=== PATIENT | female | born 1955 | race Caucasian/White ===

== ENCOUNTER 2018-08-17 12:43 | Outpatient (REF) | payer OTHER, SELFPAY ==
--- NOTE | 2018-08-17 11:00 | PAPFT_PTH ---
PATIENT: Asha Starr LOC: [facility] U#:[id number] AGE/SX: 62/F ROOM: RE08/17/[address]: Valentina Lloyd MD, DC : 1955 BED: DIS: 08/17/2018 SPEC #: [id number] RECD: 08/17/18 18:23 STATUS: MAMIE REQ #: [id number] EMMANUEL: 08/17/18 11:[address]: Valentina Lloyd DEPT: [facility] Cytology RECD BY: Beti Ruiz Tissues: 1 - CX/ENDOCX FOR PAP SMEARS Procedures: PAP THIN PREP/UVM Screening HPV DNA PROBE Comments: [id number]
== END 2018-08-17 13:03 ==
LOC: LBN 12:43
PROVIDERS: PCP Family Medicine; Visit Provider Family Medicine
DX: Z12.4 Encounter for screening for malignant neoplasm of cervix (principal); Z11.51 Encounter for screening for human papillomavirus (HPV)
CPT/HCPCS: 88142; 87624

== ENCOUNTER 2018-08-25 01:19 | Outpatient (CLI) | payer OTHER, SELFPAY ==
--- NOTE | 2018-08-25 07:50 | DI.MAMMO_ITS ---
SYMPTOMS/DIAGNOSIS: SCREENING MAMMOGRAMS: Mammograms were interpreted according to the usual protocol including computer analysis with CAD system, tomosynthesis and C view imaging. The breast tissue is heterogeneously radiodense, which lowers the sensitivity of the study. There is no evidence of a mass. There are no suspicious calcifications and there has been no significant interval change when compared with prior images. SUMMARY: No evidence of malignancy, category 1. Yearly screening mammography is recommended. Breast density category C. MQSA ASSESSMENT OF FINDINGS: Negative. Category 1. Patient will receive a letter notifying them of these results. Bi-RADS category C. The breasts are heterogeneously dense, which may obscure small masses.
== END 2018-08-25 01:39 ==
PROVIDERS: PCP Family Medicine; Visit Provider Family Medicine
DX: Z12.31 Encounter for screening mammogram for malignant neoplasm of breast (principal)
CPT/HCPCS: 77063; 77067

== ENCOUNTER 2018-09-21 10:25 | Day surgery (SDC) | payer OTHER, SELFPAY ==
--- NOTE | 2018-09-21 07:07 | W.COLOREPORT ---
Date of service: 09/21/18 Time of Service: 13:22 Colonoscopy Report Date of procedure: 09/21/18 Pre-op diagnosis general: Family history of colon cancer, screening Post-op diagnosis procedure note: same Procedure: Colonoscopy Surgeon: Livier Barron Anesthesia proc note operative: MAC (Pineda Ha, JULIEN / ASA 2) Estimated blood loss (mL): 0 Pathology: none sent Complications: None Disposition: same day Indications: Mrs. Matty Starr is a 62-year-old female who was seen in the office to discuss a colonoscopy. She had a colonoscopy in 2012 which was normal. She has a strong family history of colon cancer with both her mother and a brother having colon cancer. Risks, benefits and complications were reviewed with her and she wished to proceed. No guarantees were given or implied. Prep: Miralax/Dulcolax Procedure Start Time: :22 Procedure End Time: 13:48 Retraction Time: 13 minutes Findings: Normal colon. very tortuous Procedure Description: After informed consent was obtained the patient was taken to the procedure room and placed in a left decubitous position. Monitors were applied and a time out was done. The patients name, date of , procedure, allergies to medications and metal in their body was reviewed. The patient was then sedated. Once sedated and comfortable a rectal exam was done. External exam was normal. Internal exam revealed a normal sphincter tone and no palpable masses. The scope was then introduced and retroflexed. No internal hemorrhoids were identified. The scope was then advanced to the cecum without difficulty. The TI and appendiceal orifice were identified. The prep was adequate. The scope was then slowly retracted over 13 minutes back into the rectum. The scope was removed and the patient was woken up and taken back to Same day surgery in stable condition. The patient tolerated the procedure well and there were no immediate complications. Follow up: The patient should follow up in 5 years due to her family history, unless they develop changes in bowel habits or other new gastrointestinal complaints.
--- NOTE | 2018-09-21 07:08 | PDOC.DSDIS_ITS ---
Discharge Plan Disposition Patient Disposition: HOME Condition: Good Discharge Details Reason For Visit: SCREENING/ Family history of colon cancer Attending Provider: Livier Barron Primary Care Provider: Valentina Lloyd Home Meds and New Rx's Prescriptions: Continue metoprolol succinate 25 mg tablet extended release 24 hr 25 mg PO DAILY Qty: 90 RF: 4 triamcinolone acetonide 0.1 % ointment 1 applic Topical DAILY PRN (Reason: rash) Qty: 80 RF: 2 estradiol [Yuvafem] 10 mcg tablet 10 mcg VG .COMPLEX Qty: 108 RF: 4 calcium carbonate-vitamin D3 [Caltrate with Vitamin D3] 1 EACH tablet 2 tab PO DAILY RF: 0 scopolamine base [Transderm-Scop] 1 EACH patch 3 day 1 patch Transdermal Q72H PRNQty: 5 RF: 4 glucosam-chond ml-qzeoop-xz ac 1 EACH capsule 1 ea PO DAILY RF: 0 lorazepam 0.5 MG tablet 0.5 mg PO HS PRNQty: 30 RF: 0 hydrocortisone acetate [Anusol-HC] 25 MG suppository 25 mg RC BID PRNQty: 30 RF: 1 bilberry fruit extract 80 MG capsule 80 mg PO DAILY RF: 0 naproxen sodium [Aleve] 220 MG tablet 220 mg PO DAILY PRNRF: 0 bupropion HCl [Wellbutrin SR] 150 MG tablet extended release 12 hr 1 tab PO DAILY Qty: 90 RF: 12 Discharge Instructions Instructions: Colonoscopy (DC) Additional Instructions: Findings: Normal Colon Follow up: 5 years New Medications: none Please call if you develop: fevers >101.5 Nausea or Vomiting Abdominal pain that is not transient 1. Because there will be medication in your system for the next 24 hours, you may feel a little sleepy. Your coordination will be affected. Therefore: a. Do not drive or operate dangerous equipment for 24 hours. b. Do not drink alcohol beverages for 24 hours (not even beer). c. Plan to go home and rest for the day. 2. Generally there are no restrictions on your activity after a day or so has gone by, but you may feel a bit fatigued for a few days. 3 After you arrive home you may have a light meal and return to a normal diet as you can tolerate it without feeling sick to your stomach. 4. After surgery, you may feel pain or discomfort. This should be only transient , but if it persists please contact your doctor. 5. If there are any questions regarding the findings of your procedure, please feel free to contact your doctor. 6. If you are unable to contact your doctor with a problem, contact the hospital at [phone]. 7. Continue all your regular medications unless directed otherwise. I understand the above instructions and have no questions. Signature of Patient or Responsible Adult Escort Date/Time Name of Responsible Adult Escort Signature of Nurse Date/Time Activity:: Activity as Tolerated Diet:: As Tolerated Discharge Orders Discharge Orders: Discharge Order (Routine); Ordered 09/21/18 Ordered By: Livier Barron DS: Diagnosis Discharge Diagnosis (1) S/P colonoscopy: Status: Acute (2) Family history of colon cancer in mother: Status: Acute
[2018-09-21 10:36] VITALS: BP 132/91; PULSE 74; RESP 16; TEMP 35.2; O2SAT 98
[2018-09-21] MEDS: Lactated Ringers 1,000 ML 80 ML IV ×2 (11:10→13:16)
[2018-09-21 14:16] VITALS: BP 119/75; PULSE 66; RESP 18; TEMP 36.8; O2SAT 99
== END 2018-09-21 14:28 | disposition home or self-care (01) ==
PROVIDERS: PCP Family Medicine; Visit Provider Surgery
PROC: 0DJD8ZZ Inspection of Lower Intestinal Tract, Via Natural or Artificial Opening Endoscopic (ICD-10-PCS; CPT 45378; principal; 2018-09-21 13:30)
DX: Z12.11 Encounter for screening for malignant neoplasm of colon (principal); Z80.0 Family history of malignant neoplasm of digestive organs
CPT/HCPCS: G0105

== ENCOUNTER 2019-01-21 10:58 | Observation (INO) | payer OTHER, SELFPAY ==
[2019-01-21] VITALS (49 sets, daily range): BP systolic 117–167; BP diastolic 71–101; PULSE 67–93; RESP 10–46; TEMP 36.5–36.8; O2SAT 95–99
--- NOTE | 2019-01-21 11:22 | DI.RAD_ITS ---
SYMPTOMS/DIAGNOSIS: PALPITATIONS, TACHYCARDIA, ? ACUTE DISEASE CHEST X-RAY, PA AND LATERAL: No priors. The heart size and pulmonary vasculature are within normal limits. The lungs are free of infiltrates, effusions or pneumothoraces. The lungs appear hyperinflated with flattened diaphragm, suggesting underlying COPD. Degenerative changes are seen in the spine. IMPRESSION: No acute pulmonary process.
[2019-01-21 11:45] LABS: Absolute Basophil Count 0.01 k/cumm (0.0-0.2); Absolute Eosinophil Count 0.06 k/cumm (0.0-0.7); Absolute Lymphocyte Count 1.34 k/cumm (1.2-3.4); Absolute Monocyte Count 0.38 k/cumm (0.11-0.7); Absolute Neutrophil Count 1.94 k/cumm (1.2-6.7); Basophils % 0.3; Eosinophils % 1.6; HGB 14.6 g/dL (12.0-15.5); Lymphocytes % 35.9; Mean Corpuscular Hemoglobin 29.7 pg (27.0-33.0); Mean Corpuscular Volume 87.6 fL (80-95); Monocytes % 10.2; Platelet Count 236 x1000/uL (130-400); RBC 4.91 m/cumm (4.00-5.20); RBC Distribution Width 12.9 % (11.7-14.6); White Blood Cell Count 3.73 k/cumm (4.4-10.8)
[2019-01-21 12:00] LABS: ALT 36 U/L (12-78); AST 31 U/L (15-37); Alkaline Phosphatase 150 U/L (46-116); Anion Gap 11.4 mmol/L (3-11); BUN 17 mg/dL (7-18); Bilirubin, Total 0.7 mg/dL (0.2-1.0); CO2 27.6 mmol/L (21.0-32.0); CREATININE 0.96 mg/dL (0.55-1.02); Calcium 9.5 mg/dL (8.5-10.1); Chloride 103 mmol/L (98-107); Estimated GFR 58.89 (mL/min/1.73m2); Glucose 125 mg/dL (70-100); Magnesium 1.9 mg/dL (1.8-2.4); Potassium 3.6 mmol/L (3.5-5.1); Sodium 142 mmol/L (136-145); Troponin I < 0.02 ng/mL (0.00-0.06)
--- NOTE | 2019-01-21 12:09 | W.ED.GENAD ---
Discharge Plan Disposition Patient Disposition: [facility] INPATIENT Condition: Stable Discharge Details Chief Complaint: Palpitatns Clinical Impression: Chest pain, rule out acute myocardial infarction Primary Care Provider: Valentina Lloyd ED Provider: Janine Aquino Home Meds and New Rx's Prescriptions: No Action triamcinolone acetonide 0.1 % ointment 1 applic Topical DAILY PRN (Reason: rash) Qty: 80 RF: 2 estradiol [Yuvafem] 10 mcg tablet 10 mcg VG .COMPLEX Qty: 108 RF: 4 calcium carbonate-vitamin D3 [Caltrate with Vitamin D3] 1 EACH tablet 2 tab PO DAILY RF: 0 scopolamine base [Transderm-Scop] 1 EACH patch 3 day 1 patch Transdermal Q72H PRNQty: 5 RF: 4 glucosam-chond tl-grxzcz-eh ac 1 EACH capsule 1 ea PO DAILY RF: 0 lorazepam 0.5 MG tablet 0.5 mg PO HS PRNQty: 30 RF: 0 hydrocortisone acetate [Anusol-HC] 25 MG suppository 25 mg RC BID PRNQty: 30 RF: 1 bilberry fruit extract 80 MG capsule 80 mg PO DAILY RF: 0 metoprolol succinate 25 mg tablet extended release 24 hr 25 mg PO DAILY Qty: 90 RF: 4 bupropion HCl [Wellbutrin SR] 150 mg tablet sustained-release 12 hr 150 mg PO DIRECTED RF: 0 Medical Decision Making 63-year-old female with a history of GERD, hypertension, anxiety and depression who presents for tachycardia, palpitations and fatigue for the past few weeks, and worsening fatigue associated with lightheadedness and left-sided chest aching and fullness today. Last episode of chest pain in route to the ED. Denies any chest pain at present. Records note that patient had a monitor and storage bin tender 1 year ago which noted a baseline sinus rhythm with 5 episodes of SVT. Considering patient's age, history of hypertension, and concerning story, cardiac workup ordered on arrival. Her EKG notes a rate of 84, sinus and no acute ST findings. Labs and imaging reviewed and unremarkable. White blood cell count 3.73. Normal electrolytes, negative troponin. Chest x-ray negative. Heart score 4 based on patient's age, history of hypertension, and suspicious story for a cardiac etiology including fatigue, lightheadedness with left-sided chest aching and fullness in a female starting 2 hours ago, will admit for observation and serial troponins. 1330 -- d/w hospitalist - accepts pt for admission. Medical Records Medical records reviewed: Yes I reviewed the patient's medical records. Imaging Data Radiologic Study: Radiologist's impression: CHEST X-RAY, PA AND LATERAL: No priors. The heart size and pulmonary vasculature are within normal limits. The lungs are free of infiltrates, effusions or pneumothoraces. The lungs appear hyperinflated with flattened diaphragm, suggesting underlying COPD. Degenerative changes are seen in the spine. IMPRESSION: No acute pulmonary process. Lab Data Lab results reviewed: Yes I reviewed the patient's lab results. Laboratory Tests Range/Units 01/21/19 01/21/19 11:10 11:10 WBC (4.4-10.8) k/cumm 3.73 L RBC (4.00-5.20) m/cumm 4.91 Hgb (12.0-15.5) g/dL 14.6 Hct (36.0-46.0) % 43.0 MCV (80-95) fL 87.6 MCH (27.0-33.0) pg 29.7 MCHC (32.0-36.0) g/dL 34.0 RDW (11.7-14.6) % 12.9 Plt Count (130-400) x1000/uL 236 MPV (8.0-11.0) fL 9.0 Immature Gran % 0.0 Neutrophils % 52.0 Lymphocytes % 35.9 Monocytes % 10.2 Eosinophils % 1.6 Basophils % 0.3 Absolute Neutrophils (1.2-6.7) k/cumm 1.94 Absolute Lymphocytes (1.2-3.4) k/cumm 1.34 Absolute Monocytes (0.11-0.7) k/cumm 0.38 Absolute Eosinophils (0.0-0.7) k/cumm 0.06 Absolute Basophils (0.0-0.2) k/cumm 0.01 Sodium (136-145) mmol/L 142 Potassium (3.5-5.1) mmol/L 3.6 Chloride (98-107) mmol/L 103 Carbon Dioxide (21.0-32.0) mmol/L 27.6 Anion Gap (3-11) mmol/L 11.4 H BUN (7-18) mg/dL 17 Creatinine (0.55-1.02) mg/dL 0.96 Estimated GFR/1.73 m2 (mL/min/1.73m2) 58.89 Glucose (70-100) mg/dL 125 H Calcium (8.5-10.1) mg/dL 9.5 Magnesium (1.8-2.4) mg/dL 1.9 Total Bilirubin (0.2-1.0) mg/dL 0.7 AST (15-37) U/L 31 ALT (12-78) U/L 36 Alkaline Phosphatase (46-116) U/L 150 H Troponin I (0.00-0.06) ng/mL < 0.02 Total Protein (6.4-8.2) g/dL 8.0 Albumin (3.4-5.0) g/dL 4.0 ECG Data Attestation: I personally reviewed and interpreted this ECG (s) as follows: Interpretation: Rate of 80, sinus, no acute ST elevation or depression. QTc 423. QRS 90. HPI General Mode of arrival: ambulatory. Date/Time Provider Initiated Documentation: 01/21/19 11:02. Limitations to Documentation: no limitations. Information obtained by: patient. HPI Narrative: Patient is a 63-year-old female with a history of hypertension, anxiety and depression who presents with tachycardia, palpitations and fatigue for the past 2 weeks, worse today with an episode of increasing fatigue and chest pain. She states today she was resting at home when she felt left-sided chest aching. She states the pain lasted for a brief second and then recurred approximately another 6 times. She admits to another episode on the way to the ER. She denies any chest pain at present. She described it as an ache and a fullness. She states today she felt more tired than usual requiring her to rest and sit at times. She also admitted to feeling some lightheadedness at the time of her chest aching. She states she has been having intermittent palpitations and tachycardia 4-5 times weekly for the past few weeks. She states she previously had a cardiac ureter year ago states which she states was negative. She states she had been taking metoprolol for her blood pressure but had a few episodes of low blood pressure with systolic in the 90s recently so she stopped her metoprolol after speaking with her primary care doctor last week. Related Data Home Medications Medication Instructions Recorded Confirmed calcium carbonate-vitamin D3 2 tab PO DAILY 02/23/13 01/21/19 [Caltrate with Vitamin D3] scopolamine base [Transderm-Scop] 1 patch TRANSDERMAL Q72H PRN #5 12/02/13 01/21/19 patch glucosam-chond mp-[id number]-vv ac 1 ea PO DAILY 05/17/14 01/21/19 lorazepam 0.5 mg PO HS PRN #30 tab 01/27/15 01/21/19 hydrocortisone acetate [Anusol-HC] 25 mg RC BID PRN #30 supp 06/12/15 01/21/19 bilberry fruit extract 80 mg PO DAILY 04/22/16 01/21/19 estradiol 10 mcg vaginal tablet 10 mcg VG .COMPLEX #108 tab 08/17/18 01/21/19 triamcinolone acetonide 0.1 % 1 applic TOPICAL DAILY PRN #80 gm 08/17/18 01/21/19 topical ointment metoprolol succinate ER 25 mg 25 mg PO DAILY #90 tab 01/19/19 01/21/19 tablet,extended release 24 hr bupropion HCl [Wellbutrin SR] 150 mg PO DIRECTED 01/21/19 01/21/19 Previous Rx's Medication Instructions Recorded estradiol 10 mcg vaginal tablet 10 mcg VG .COMPLEX #108 tab 08/17/18 triamcinolone acetonide 0.1 % 1 applic TOPICAL DAILY PRN #80 gm 08/17/18 topical ointment metoprolol succinate ER 25 mg 25 mg PO DAILY #90 tab 01/19/19 tablet,extended release 24 hr Allergies Allergy/AdvReac Type Severity Reaction Status Date / Time alendronate sodium Allergy Unknown Verified 01/21/19 11:16 latex Allergy Unknown Verified 01/21/19 11:16 risedronate sodium Allergy Unknown Verified 01/21/19 11:16 Sulfa (Sulfonamide Allergy Unknown Verified 01/21/19 11:16 Antibiotics) General Stated Complaint: Palpitatns AUNG: 2 Review of Systems Review of Systems All systems reviewed & are unremarkable except as noted in HPI and below Constitutional Reports as per HPI, Denies chills and Denies fever(s) Eyes Denies blurry vision ENT Denies dizziness, Denies sore throat and Denies throat swelling Cardiovascular Reports chest pain and Denies dyspnea Respiratory Denies cough and Denies dyspnea Gastrointestinal Denies abdominal pain, Denies diarrhea and Denies vomiting Genitourinary Denies hematuria and Denies dysuria Musculoskeletal Denies back pain and Denies numbness Integumentary/Breasts Denies lesions and Denies rash Neurologic Denies dizziness, Denies focal weakness and Denies numbness Allergic/Immunologic Denies throat swelling [facility] Medical History 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) Osteoporosis (Chronic) Gastroesophageal reflux disease (Chronic) Diverticular disease (Chronic 08/19/13) Depressive disorder (Chronic) Chronic pain of toe (Chronic 04/30/18) Cataract (Chronic 04/22/16) Atrophic vaginitis (Chronic) Annual physical exam (Resolved 06/12/15) Bacterial vaginitis (Resolved) Carpal tunnel syndrome (Resolved) Cerumen impaction (Resolved) Chronic left shoulder pain (Resolved) Diarrhea (Resolved) Elevated BP without diagnosis of hypertension (Resolved) Elevated blood pressure reading (Resolved 09/15/17) Female infertility (Resolved) Finger pain, left (Resolved) Hand numbness (Resolved 04/30/18) Shoulder pain (Resolved 10/09/00) Tachycardia (Resolved 10/27/17) Surgical History S/P colonoscopy (Acute ~09/21/18) Colonoscopy planned (Acute ~09/21/18) History of Mohs surgery for squamous cell carcinoma in situ of skin (Resolved) S/P carpal tunnel release (Resolved) S/P laparotomy (Resolved) Extraction of cataract Open Carpal Tunnel release PROCEDURES Family History Mother CAD (coronary artery disease) Essential hypertension COPD (chronic obstructive pulmonary disease) Heart disease Hyperlipidemia Neoplasm Smoker Stroke Father Diabetes Essential hypertension Heart disease Neoplasm Stroke Sister Neoplasm Smoker Sister Neoplasm Sister Smoker Sister Neoplasm Brother Diabetes Neoplasm Brother COPD (chronic obstructive pulmonary disease) Smoker Brother Smoker Brother Essential hypertension Neoplasm Grandfather Lung disease Grandfather Essential hypertension Heart disease Grandmother No problems noted. Grandmother Essential hypertension Heart disease Stroke Son No problems noted. Son No problems noted. Social History Smoking/Tobacco Use Status: Never Alcohol Intake: current Alcohol Intake frequency: a few times a month Alcohol type: wine Drug use: Never Substance use type: does not use Household members: spouse Pets and animals: Yes Pets and animals: dog(s) Duration: 15-30 minutes/day Frequency: 1-2 times per week Milka/[employer]: [employer] Special milka needs: No Do you feel safe at home: Yes Do you feel safe in your relationship?: Yes Exam Const General: cooperative, healthy appearing and no acute distress HENMT Head: normal to inspection Face and sinus: normal facial exam Eyes General: appearance normal, both eyes and all related structures EOM: EOM intact bilaterally Neck Neck: normal visual inspection and No submandibular swelling Lymphatic: no lymphadenopathy noted Chest Chest: normal inspection of the chest, normal palpation of entire chest wall and no tenderness Resp Effort & Inspection: normal respiratory effort and able to speak in complete sentences Auscultation: clear to auscultation bilaterally Cardio Rate: regular rate Rhythm: regular rhythm GI Inspection: normal to inspection Palpation: soft, not firm, not rigid and nontender Auscultation: normal bowel sounds Skin General skin exam: no rashes or lesions noted Neuro General: alert, awake and oriented x3 Cognition: normal cognition Speech: speech normal Motor: muscle tone normal throughout Sensory Exam: no sensory deficits noted Extrem General: normal to inspection, full ROM and no edema Psych Appearance: grossly normal Mental Status: mental status grossly normal Speech and Movement: speech and movement normal Affect: normal affect Course Vital Signs Temperature 97.9 F 01/21/19 11:08 Pulse 90 01/21/19 11:08 Respiratory Rate 16 01/21/19 11:08 Blood Pressure 162/93 H 01/21/19 11:08 Pulse Oximetry 98 01/21/19 11:08 Temperature 97.9 F 01/21/19 11:08 Temperature Source Skin 01/21/19 11:08 Pulse 75 01/21/19 11:58 Pulse 83 01/21/19 11:31 Respiratory Rate 46 H 01/21/19 11:58 Blood Pressure 138/94 H 01/21/19 11:58 Blood Pressure Mean 100 01/21/19 11:58 Blood Pressure Position Supine 01/21/19 11:08 Pulse Oximetry 97 01/21/19 11:58 Oxygen Delivery Method Room Air 01/21/19 11:08 Oxygen Flow Rate 0 01/21/19 11:08 Lab/Test Results Lab/Test Results: Laboratory Tests Range/Units 01/21/19 01/21/19 11:10 11:10 WBC (4.4-10.8) k/cumm 3.73 L RBC (4.00-5.20) m/cumm 4.91 Hgb (12.0-15.5) g/dL 14.6 Hct (36.0-46.0) % 43.0 MCV (80-95) fL 87.6 MCH (27.0-33.0) pg 29.7 MCHC (32.0-36.0) g/dL 34.0 RDW (11.7-14.6) % 12.9 Plt Count (130-400) x1000/uL 236 MPV (8.0-11.0) fL 9.0 Immature Gran % 0.0 Neutrophils % 52.0 Lymphocytes % 35.9 Monocytes % 10.2 Eosinophils % 1.6 Basophils % 0.3 Absolute Neutrophils (1.2-6.7) k/cumm 1.94 Absolute Lymphocytes (1.2-3.4) k/cumm 1.34 Absolute Monocytes (0.11-0.7) k/cumm 0.38 Absolute Eosinophils (0.0-0.7) k/cumm 0.06 Absolute Basophils (0.0-0.2) k/cumm 0.01 Sodium (136-145) mmol/L 142 Potassium (3.5-5.1) mmol/L 3.6 Chloride (98-107) mmol/L 103 Carbon Dioxide (21.0-32.0) mmol/L 27.6 Anion Gap (3-11) mmol/L 11.4 H BUN (7-18) mg/dL 17 Creatinine (0.55-1.02) mg/dL 0.96 Estimated GFR/1.73 m2 (mL/min/1.73m2) 58.89 Glucose (70-100) mg/dL 125 H Calcium (8.5-10.1) mg/dL 9.5 Magnesium (1.8-2.4) mg/dL 1.9 Total Bilirubin (0.2-1.0) mg/dL 0.7 AST (15-37) U/L 31 ALT (12-78) U/L 36 Alkaline Phosphatase (46-116) U/L 150 H Troponin I (0.00-0.06) ng/mL < 0.02 Total Protein (6.4-8.2) g/dL 8.0 Albumin (3.4-5.0) g/dL 4.0
[2019-01-21] MEDS: Aspirin 325 MG TAB PO (13:36)
[2019-01-21] MEDS: Normal Saline Flush 10 ML SYR IVP (13:37)
--- NOTE | 2019-01-21 14:32 | PDOC.ERCMPRO ---
Care Management Progress Note 01/21-Asha presented to the emergency department for palpitations. Dr. Aquino is admitting observation to med/surg. This CM met with Asha. Asha is lying in bed listening to music from the music therapy program. Asha lives with her [facility] in [place]. She is retired. Asha is independent at home and uses no DME. [employer] will transport home when ready. Dr. Lloyd is PCP. Asha has [employer] for insurance. Asha has this CM's contact information if further assistance is needed.
[2019-01-21 16:22] LABS: Troponin I < 0.02 ng/mL (0.00-0.06)
--- NOTE | 2019-01-21 18:09 | W.PM.HP.N ---
Date of service: 01/21/19 Time of Service: 18:09 Assessment and Plan (1) Chest pain, rule out acute myocardial infarction: Current visit: Yes Status: Acute Admit to observation for serial troponins. Will monitor on telemetry. Overall low risk for acute coronary syndrome. Plan will be for nuclear stress testing as an outpatient if she rules out. (2) Depressive disorder: Current visit: No Status: Chronic Continue present medications. Appears stable at this time. (3) Discharge planning issues: Current visit: Yes Status: Acute Admit to observation. She is a full code. History of Present Illness Chief Complaint: Chest pain/rule out [place] Narrative: This is a 63-year-old woman that presented to the emergency room with a 2-week history of intermittent chest pain and increasing fatigue. She is also noticed some palpitations associated with lightheadedness. She described a left-sided chest ache and fullness today. In the emergency room the chest ache and fullness had dissipated. Her EKG showed no acute ST findings. Her labs and imaging were unremarkable. She is admitted on telemetry for observation. Review of Systems Review of Systems Her general review of systems is primarily unremarkable except as noted in HPI and below. Constitutional Denies excessive sweating, Denies frequent falls and Denies headache(s) Eyes Denies change in vision ENT Reports dizziness (With palpitation), Denies headache(s) and Denies throat swelling Cardiovascular Reports chest pain, Denies edema, Denies dyspnea, Denies dyspnea on exertion and Denies orthopnea Comments: States that she does not get chest pain during her [employer] workout. States that she occasionally will get some chest discomfort watching TV. Respiratory Denies change in phlegm color, Denies cough, Denies excessive phlegm production, Denies dyspnea and Denies dyspnea on exertion Gastrointestinal Denies diarrhea, Denies nausea and Denies vomiting Genitourinary Denies urinary frequency and Denies urinary incontinence Musculoskeletal Denies back pain and Denies deformity Integumentary/Breasts Denies rash, Denies sores and Denies wounds Neurologic Denies confusion, Reports dizziness (With palpitation), Denies frequent falls, Denies headache(s), Denies focal weakness and Denies sensory deficit Psychiatric Reports anxiety (Taking care of her in-laws), Denies confusion, Reports depression and Denies suicidal ideation Endocrine Denies cold intolerance and Denies excessive sweating Hematologic/Lymphatic Denies easy bleeding and Denies easy bruising Allergic/Immunologic Denies urticaria and Denies throat swelling [facility] Medical History 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) Osteoporosis (Chronic) Gastroesophageal reflux disease (Chronic) Diverticular disease (Chronic 08/19/13) Depressive disorder (Chronic) Chronic pain of toe (Chronic 04/30/18) Cataract (Chronic 04/22/16) Atrophic vaginitis (Chronic) Annual physical exam (Resolved 06/12/15) Bacterial vaginitis (Resolved) Carpal tunnel syndrome (Resolved) Cerumen impaction (Resolved) Chronic left shoulder pain (Resolved) Diarrhea (Resolved) Elevated BP without diagnosis of hypertension (Resolved) Elevated blood pressure reading (Resolved 09/15/17) Female infertility (Resolved) Finger pain, left (Resolved) Hand numbness (Resolved 04/30/18) Shoulder pain (Resolved 10/09/00) Tachycardia (Resolved 10/27/17) Surgical History S/P colonoscopy (Acute ~09/21/18) Colonoscopy planned (Acute ~09/21/18) History of Mohs surgery for squamous cell carcinoma in situ of skin (Resolved) S/P carpal tunnel release (Resolved) S/P laparotomy (Resolved) Extraction of cataract Open Carpal Tunnel release PROCEDURES Family History Mother CAD (coronary artery disease) Essential hypertension COPD (chronic obstructive pulmonary disease) Heart disease Hyperlipidemia Neoplasm Smoker Stroke Father Diabetes Essential hypertension Heart disease Neoplasm Stroke Sister Neoplasm Smoker Sister Neoplasm Sister Smoker Sister Neoplasm Brother Diabetes Neoplasm Brother COPD (chronic obstructive pulmonary disease) Smoker Brother Smoker Brother Essential hypertension Neoplasm Grandfather Lung disease Grandfather Essential hypertension Heart disease Grandmother No problems noted. Grandmother Essential hypertension Heart disease Stroke Son No problems noted. Son No problems noted. Social History Smoking/Tobacco Use Status: Never Alcohol Intake: current Alcohol Intake frequency: a few times a month Alcohol type: wine Drug use: Never Substance use type: does not use Household members: spouse Pets and animals: Yes Pets and animals: dog(s) Duration: 15-30 minutes/day Frequency: 1-2 times per week Milka/Spiritism: Restorationist Special milka needs: No Do you feel safe at home: Yes Do you feel safe in your relationship?: Yes Meds Home Medications Medication Instructions Recorded Confirmed Type calcium carbonate-vitamin D3 2 tab PO DAILY 02/23/13 01/21/19 History [Caltrate with Vitamin D3] scopolamine base [Transderm-Scop] 1 patch TRANSDERMAL Q72H PRN #5 12/02/13 01/21/19 History patch glucosam-chond [id number] ac 1 ea PO DAILY 05/17/14 01/21/19 History lorazepam 0.5 mg PO HS PRN #30 tab 01/27/15 01/21/19 History hydrocortisone acetate [Anusol-HC] 25 mg RC BID PRN #30 supp 06/12/15 01/21/19 History bilberry fruit extract 80 mg PO DAILY 04/22/16 01/21/19 History estradiol 10 mcg vaginal tablet 10 mcg VG .COMPLEX #108 tab 08/17/18 01/21/19 Rx triamcinolone acetonide 0.1 % 1 applic TOPICAL DAILY PRN #80 gm 08/17/18 01/21/19 Rx topical ointment metoprolol succinate ER 25 mg 25 mg PO DAILY #90 tab 01/19/19 01/21/19 Rx tablet,extended release 24 hr bupropion HCl [Wellbutrin SR] 150 mg PO DIRECTED 01/21/19 01/21/19 History Allergies Allergy/AdvReac Type Severity Reaction Status Date / Time alendronate sodium Allergy Unknown Verified 01/21/19 11:16 latex Allergy Unknown Verified 01/21/19 11:16 risedronate sodium Allergy Unknown Verified 01/21/19 11:16 Sulfa (Sulfonamide Allergy Unknown Verified 01/21/19 11:16 Antibiotics) Exam Narrative Exam Narrative: Very pleasant and in no apparent distress Const General: cooperative, healthy appearing, comfortable and no acute distress Nutritional Appearance: average body habitus Orientation: alert, awake and oriented x3 HENMT Head: normal to inspection Ears: hearing grossly normal bilaterally General nose exam: external nose normal Face and sinus: normal facial exam Mouth: oral mucosae normal Teeth and gingiva: dentition normal Eyes General: appearance normal, both eyes and all related structures Neck Neck: normal visual inspection Chest Chest: normal inspection of the chest Resp Effort & Inspection: normal respiratory effort Auscultation: clear to auscultation bilaterally Cardio Rate: regular rate Rhythm: regular rhythm Heart Sounds: no murmurs GI Inspection: normal to inspection Palpation: soft Skin General skin exam: no rashes or lesions noted Neuro Cranial Nerves: CN's II-XI intact bilaterally Extrem General: normal to inspection Psych Appearance: grossly normal Mood: congruent mood Affect: normal affect Attitude: cooperative Thought Process: normal Results Imaging Chest x-ray: report reviewed Additional studies: Troponin less than 0.02 x 2 EKG: report reviewed Labs : 01/21/19 11:10 01/21/19 11:10 Laboratory Results - last 24 hr 01/21/19 01/21/19 01/21/19 11:10 11:10 16:00 WBC 3.73 L RBC 4.91 Hgb 14.6 Hct 43.0 MCV 87.6 MCH 29.7 MCHC 34.0 RDW 12.9 Plt Count 236 MPV 9.0 Immature Gran % 0.0 Neutrophils % 52.0 Lymphocytes % 35.9 Monocytes % 10.2 Eosinophils % 1.6 Basophils % 0.3 Absolute Neutrophils 1.94 Absolute Lymphocytes 1.34 Absolute Monocytes 0.38 Absolute Eosinophils 0.06 Absolute Basophils 0.01 Sodium 142 Potassium 3.6 Chloride 103 Carbon Dioxide 27.6 Anion Gap 11.4 H BUN 17 Creatinine 0.96 Estimated GFR/1.73 m2 58.89 Glucose 125 H Calcium 9.5 Magnesium 1.9 Total Bilirubin 0.7 AST 31 ALT 36 Alkaline Phosphatase 150 H Troponin I < 0.02 < 0.02 Total Protein 8.0 Albumin 4.0 Last Vital Signs Temp 36.7 C 01/21/19 15:50 Pulse 89 01/21/19 15:50 Resp 14 01/21/19 15:50 BP 154/82 H 01/21/19 15:50 Pulse Ox 97 01/21/19 15:50
--- NOTE | 2019-01-21 18:18 | HPE_ITS ---
Date of service: 01/21/19 Time of Service: 18:09 Assessment and Plan (1) Chest pain, rule out acute myocardial infarction: Current visit: Yes Status: Acute Admit to observation for serial troponins. Will monitor on telemetry. Overall low risk for acute coronary syndrome. Plan will be for nuclear stress testing as an outpatient if she rules out. (2) Depressive disorder: Current visit: No Status: Chronic Continue present medications. Appears stable at this time. (3) Discharge planning issues: Current visit: Yes Status: Acute Admit to observation. She is a full code. History of Present Illness Chief Complaint: Chest pain/rule out [place] Narrative: This is a 63-year-old woman that presented to the emergency room with a 2-week history of intermittent chest pain and increasing fatigue. She is also noticed some palpitations associated with lightheadedness. She described a left-sided chest ache and fullness today. In the emergency room the chest ache and fullness had dissipated. Her EKG showed no acute ST findings. Her labs and imaging were unremarkable. She is admitted on telemetry for observation. Review of Systems Review of Systems Her general review of systems is primarily unremarkable except as noted in HPI and below. Constitutional Denies excessive sweating, Denies frequent falls and Denies headache(s) Eyes Denies change in vision ENT Reports dizziness (With palpitation), Denies headache(s) and Denies throat swelling Cardiovascular Reports chest pain, Denies edema, Denies dyspnea, Denies dyspnea on exertion and Denies orthopnea Comments: States that she does not get chest pain during her [employer] workout. States that she occasionally will get some chest discomfort watching TV. Respiratory Denies change in phlegm color, Denies cough, Denies excessive phlegm production, Denies dyspnea and Denies dyspnea on exertion Gastrointestinal Denies diarrhea, Denies nausea and Denies vomiting Genitourinary Denies urinary frequency and Denies urinary incontinence Musculoskeletal Denies back pain and Denies deformity Integumentary/Breasts Denies rash, Denies sores and Denies wounds Neurologic Denies confusion, Reports dizziness (With palpitation), Denies frequent falls, Denies headache(s), Denies focal weakness and Denies sensory deficit Psychiatric Reports anxiety (Taking care of her in-laws), Denies confusion, Reports depression and Denies suicidal ideation Endocrine Denies cold intolerance and Denies excessive sweating Hematologic/Lymphatic Denies easy bleeding and Denies easy bruising Allergic/Immunologic Denies urticaria and Denies throat swelling [facility] Medical History 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) Osteoporosis (Chronic) Gastroesophageal reflux disease (Chronic) Diverticular disease (Chronic 08/19/13) Depressive disorder (Chronic) Chronic pain of toe (Chronic 04/30/18) Cataract (Chronic 04/22/16) Atrophic vaginitis (Chronic) Annual physical exam (Resolved 06/12/15) Bacterial vaginitis (Resolved) Carpal tunnel syndrome (Resolved) Cerumen impaction (Resolved) Chronic left shoulder pain (Resolved) Diarrhea (Resolved) Elevated BP without diagnosis of hypertension (Resolved) Elevated blood pressure reading (Resolved 09/15/17) Female infertility (Resolved) Finger pain, left (Resolved) Hand numbness (Resolved 04/30/18) Shoulder pain (Resolved 10/09/00) Tachycardia (Resolved 10/27/17) Surgical History S/P colonoscopy (Acute ~09/21/18) Colonoscopy planned (Acute ~09/21/18) History of Mohs surgery for squamous cell carcinoma in situ of skin (Resolved) S/P carpal tunnel release (Resolved) S/P laparotomy (Resolved) Extraction of cataract Open Carpal Tunnel release PROCEDURES Family History Mother CAD (coronary artery disease) Essential hypertension COPD (chronic obstructive pulmonary disease) Heart disease Hyperlipidemia Neoplasm Smoker Stroke Father Diabetes Essential hypertension Heart disease Neoplasm Stroke Sister Neoplasm Smoker Sister Neoplasm Sister Smoker Sister Neoplasm Brother Diabetes Neoplasm Brother COPD (chronic obstructive pulmonary disease) Smoker Brother Smoker Brother Essential hypertension Neoplasm Grandfather Lung disease Grandfather Essential hypertension Heart disease Grandmother No problems noted. Grandmother Essential hypertension Heart disease Stroke Son No problems noted. Son No problems noted. Social History Smoking/Tobacco Use Status: Never Alcohol Intake: current Alcohol Intake frequency: a few times a month Alcohol type: wine Drug use: Never Substance use type: does not use Household members: spouse Pets and animals: Yes Pets and animals: dog(s) Duration: 15-30 minutes/day Frequency: 1-2 times per week Milka/Hoahaoism: Catholic Special milka needs: No Do you feel safe at home: Yes Do you feel safe in your relationship?: Yes Meds Home Medications Medication Instructions Recorded Confirmed Type calcium carbonate-vitamin D3 2 tab PO DAILY 02/23/13 01/21/19 History [Caltrate with Vitamin D3] scopolamine base [Transderm-Scop] 1 patch TRANSDERMAL Q72H PRN #5 12/02/13 History patch glucosam-chond [id number] ac 1 ea PO DAILY 05/17/14 01/21/19 History lorazepam 0.5 mg PO HS PRN #30 tab 01/27/15 01/21/19 History hydrocortisone acetate [Anusol-HC] 25 mg RC BID PRN #30 supp 06/12/15 01/21/19 History bilberry fruit extract 80 mg PO DAILY 04/22/16 01/21/19 History estradiol 10 mcg vaginal tablet 10 mcg VG .COMPLEX #108 tab 08/17/18 01/21/19 Rx triamcinolone acetonide 0.1 % 1 applic TOPICAL DAILY PRN #80 gm 08/17/18 01/21/19 Rx topical ointment metoprolol succinate ER 25 mg 25 mg PO DAILY #90 tab 01/19/19 01/21/19 Rx tablet,extended release 24 hr bupropion HCl [Wellbutrin SR] 150 mg PO DIRECTED 01/21/19 01/21/19 History Allergies Allergy/AdvReac Type Severity Reaction Status Date / Time alendronate sodium Allergy Unknown Verified 01/21/19 11:16 latex Allergy Unknown Verified 01/21/19 11:16 risedronate sodium Allergy Unknown Verified 01/21/19 11:16 Sulfa (Sulfonamide Allergy Unknown Verified 01/21/19 11:16 Antibiotics) Exam Narrative Exam Narrative: Very pleasant and in no apparent distress Const General: cooperative, healthy appearing, comfortable and no acute distress Nutritional Appearance: average body habitus Orientation: alert, awake and oriented x3 HENMT Head: normal to inspection Ears: hearing grossly normal bilaterally General nose exam: external nose normal Face and sinus: normal facial exam Mouth: oral mucosae normal Teeth and gingiva: dentition normal Eyes General: appearance normal, both eyes and all related structures Neck Neck: normal visual inspection Chest Chest: normal inspection of the chest Resp Effort & Inspection: normal respiratory effort Auscultation: clear to auscultation bilaterally Cardio Rate: regular rate Rhythm: regular rhythm Heart Sounds: no murmurs GI Inspection: normal to inspection Palpation: soft Skin General skin exam: no rashes or lesions noted Neuro Cranial Nerves: CN's II-XI intact bilaterally Extrem General: normal to inspection Psych Appearance: grossly normal Mood: congruent mood Affect: normal affect Attitude: cooperative Thought Process: normal Results Imaging Chest x-ray: report reviewed Additional studies: Troponin less than 0.02 x 2 EKG: report reviewed Labs : 01/21/19 11:10 01/21/19 11:10 Laboratory Results - last 24 hr 01/21/19 01/21/19 01/21/19 11:10 11:10 16:00 WBC 3.73 L RBC 4.91 Hgb 14.6 Hct 43.0 MCV 87.6 MCH 29.7 MCHC 34.0 RDW 12.9 Plt Count 236 MPV 9.0 Immature Gran % 0.0 Neutrophils % 52.0 Lymphocytes % 35.9 Monocytes % 10.2 Eosinophils % 1.6 Basophils % 0.3 Absolute Neutrophils 1.94 Absolute Lymphocytes 1.34 Absolute Monocytes 0.38 Absolute Eosinophils 0.06 Absolute Basophils 0.01 Sodium 142 Potassium 3.6 Chloride 103 Carbon Dioxide 27.6 Anion Gap 11.4 H BUN 17 Creatinine 0.96 Estimated GFR/1.73 m2 58.89 Glucose 125 H Calcium 9.5 Magnesium 1.9 Total Bilirubin 0.7 AST 31 ALT 36 Alkaline Phosphatase 150 H Troponin I < 0.02 < 0.02 Total Protein 8.0 Albumin 4.0 Last Vital Signs Temp 36.7 C 01/21/19 15:50 Pulse 89 01/21/19 15:50 Resp 14 01/21/19 15:50 BP 154/82 H 01/21/19 15:50 Pulse Ox 97 01/21/19 15:50
[2019-01-21] MEDS: Enoxaparin 40 MG/0.4 ML SYR SC (19:24)
[2019-01-21 20:47] LABS: Troponin I < 0.02 ng/mL (0.00-0.06)
[2019-01-22 00:40] VITALS: PULSE 72
[2019-01-22 06:59] VITALS: PULSE 73
[2019-01-22 07:10] VITALS: O2SAT 96
[2019-01-22] MEDS: buPROPion-CR 150 MG TABCR PO (07:46)
[2019-01-22] MEDS: Metoprolol CR 25 MG TABCR PO (07:46)
[2019-01-22 08:27] VITALS: BP 115/77; PULSE 70; RESP 20; TEMP 37; O2SAT 96
--- NOTE | 2019-01-22 08:58 | PDOC.CMIN ---
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 Osteoporosis (Chronic). Gastroesophageal reflux disease (Chronic). Diverticular disease (Chronic 08/19/13). Depressive disorder (Chronic). Chronic pain of toe (Chronic 04/30/18). Cataract (Chronic 04/22/16). Atrophic vaginitis (Chronic). Annual physical exam (Resolved 06/12/15). Bacterial vaginitis (Resolved). Carpal tunnel syndrome (Resolved). Cerumen impaction (Resolved). Chronic left shoulder pain (Resolved). Diarrhea (Resolved). Elevated BP without diagnosis of hypertension (Resolved). Elevated blood pressure reading (Resolved 09/15/17). Female infertility (Resolved). Finger pain, left (Resolved). Hand numbness (Resolved 04/30/18). Shoulder pain (Resolved 10/09/00). Tachycardia (Resolved 10/27/17). S/P colonoscopy (Acute ~09/21/18). Colonoscopy planned (Acute ~09/21/18). History of Mohs surgery for squamous cell carcinoma in situ of skin (Resolved). S/P carpal tunnel release (Resolved). S/P laparotomy (Resolved). Extraction of cataract. Open Carpal Tunnel release. PROCEDURES PREVIOUS FUNCTIONAL STATUS/SOCIAL/FAMILY SUPPORTS:: Asha resides in [place] with her Boom. She is independent at baseline, drives, and manages ADL's CURRENT FUNCTIONAL STATUS:: Currently Asha is sitting up in the stretcher when this fiction writer visits. Pleasant and receptive to discussion. ADVANCE DIRECTIVES:: On file - Boom Starr is agent, Pat Berg is alternate Has patient been provided with information about the portal?: Yes Did the patient sign up for the portal?: No CODE STATUS:: Full Code INSURANCE COVERAGE / FINANCIAL ISSUES:: [facility] CURRENT HOME/COMMUNITY SERVICES/EQUIPMENT:: Currently Asha has no services or medical equipment in the community. PRIMARY CARE PHYSICIAN:: Dr. Lloyd POTENTIAL DISCHARGE NEEDS:: F/U appointment with PCP PATIENT/FAMILY EDUCATION NEEDS:: Review DC instructions, any limitations, and ongoing DC planning discussion. Discuss 'Ask Me Three' ANTICIPATED BARRIERS TO DISCHARGE:: None identified at this time. TRANSPORTATION:: Via private vehicle with family. PLAN:: Asha will return home with no anticipated services once medically cleared. She will F/U with PCP and plan of care as prescribed. Her family will tarnsport her.
--- NOTE | 2019-01-22 09:01 | INITIAL_ITS ---
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 Osteoporosis (Chronic). Gastroesophageal reflux disease (Chronic). Diverticular disease (Chronic 08/19/13). Depressive disorder (Chronic). Chronic pain of toe (Chronic 04/30/18). Cataract (Chronic 04/22/16). Atrophic vaginitis (Chronic). Annual physical exam (Resolved 06/12/15). Bacterial vaginitis (Resolved). Carpal tunnel syndrome (Resolved). Cerumen impaction (Resolved). Chronic left shoulder pain (Resolved). Diarrhea (Resolved). Elevated BP without diagnosis of hypertension (Resolved). Elevated blood pressure reading (Resolved 09/15/17). Female infertility (Resolved). Finger pain, left (Resolved). Hand numbness (Resolved 04/30/18). Shoulder pain (Resolved 10/09/00). Tachycardia (Resolved 10/27/17). S/P colonoscopy (Acute ~09/21/18). Colonoscopy planned (Acute ~09/21/18). History of Mohs surgery for squamous cell carcinoma in situ of skin (Resolved). S/P carpal tunnel release (Resolved). S/P laparotomy (Resolved). Extraction of cataract. Open Carpal Tunnel release. PROCEDURES PREVIOUS FUNCTIONAL STATUS/SOCIAL/FAMILY SUPPORTS:: Asha resides in [place] with her Boom. She is independent at baseline, drives, and manages ADL's CURRENT FUNCTIONAL STATUS:: Currently Asha is sitting up in the stretcher when this brief writer visits. Pleasant and receptive to discussion. ADVANCE DIRECTIVES:: On file - Bo[employer] Starr is agent, Pat Berg is alternate Has patient been provided with information about the portal?: Yes Did the patient sign up for the portal?: No CODE STATUS:: Full Code INSURANCE COVERAGE / FINANCIAL ISSUES:: [facility] CURRENT HOME/COMMUNITY SERVICES/EQUIPMENT:: Currently Asha has no services or medical equipment in the community. PRIMARY CARE PHYSICIAN:: Dr. Lloyd POTENTIAL DISCHARGE NEEDS:: F/U appointment with PCP PATIENT/FAMILY EDUCATION NEEDS:: Review DC instructions, any limitations, and ongoing DC planning discussion. Discuss 'Ask Me Three' ANTICIPATED BARRIERS TO DISCHARGE:: None identified at this time. TRANSPORTATION:: Via private vehicle with family. PLAN:: Asha will return home with no anticipated services once medically cleared. She will F/U with PCP and plan of care as prescribed. Her family will tarnsport her.
[2019-01-22 10:55] VITALS: PULSE 79
--- NOTE | 2019-01-22 11:39 | PDOC.CMDIS ---
- If Service Date Differs Date of service: 01/22/19 Time of Service: 11:39 LACE Index Scoring Tool - Questions: Length of Stay (in days): 1 Acuity (Admit via E.D.?): Yes E.D. Visits: 1 - Answers: Total Score: 5 Risk of Readmission: Low Risk Care Management Discharge Reason for Hospitalization: Chest pain, R/O [place] Discharge Plan: Asha will return home today with no services. She will F/U with PCP and plan of care as prescribed. Family to transport. Patient/Family Education Needs: Review DC instructions, any limitations, and discuss 'Ask Me Three'
--- NOTE | 2019-01-22 18:22 | DSE_ITS ---
Date of service: 01/22/19 Time of Service: 18:18 DS: Diagnosis Discharge Diagnosis (1) Chest pain, rule out acute myocardial infarction: Status: Acute (2) Depressive disorder: Status: Chronic Discharge Plan Disposition Patient Disposition: HOME Condition: Stable Discharge Details Reason For Visit: CHEST PAIN R/O ACS, INTERMITTENT PALPITATIONS Admit Date/Time: 01/21/19 13:29 Admit Provider: Chace Kilpatrick Attending Provider: Chace Kilpatrick Primary Care Provider: Valentina Lloyd [facility] Course Hospital Course: 63-year-old woman that presented with an episode of chest pressure. In the emergency room she stated she had a 2-week history of intermittent chest pain and increasing fatigue. She is also noticed some palpitations associated with lightheadedness. She described a left-sided chest ache and fullness today. In the emergency room the chest ache and fullness had dissipated. Her EKG showed no acute ST findings. Her labs and imaging were unremarkable. She was admitted to telemetry on [facility]. Serial troponins came back at 0.02 x 3. She had no recurrent chest pain or pressure. She is discharged with plans for an outpatient MPI. Home Meds and New Rx's Prescriptions: New nitroglycerin [Nitrostat] 0.4 mg tablet, sublingual 0.4 mg SL Q5M MDD 3 doses PRN (Reason: chest pain) Qty: 30 RF: 0 aspirin 81 mg tablet,delayed release (DR/EC) 81 mg PO DAILY Qty: 30 RF: 0 Continued triamcinolone acetonide 0.1 % ointment 1 applic Topical DAILY PRN (Reason: rash) Qty: 80 RF: 2 estradiol [Yuvafem] 10 mcg tablet 10 mcg VG .COMPLEX Qty: 108 RF: 4 calcium carbonate-vitamin D3 [Caltrate with Vitamin D3] 1 EACH tablet 2 tab PO DAILY RF: 0 scopolamine base [Transderm-Scop] 1 EACH patch 3 day 1 patch Transdermal Q72H PRNQty: 5 RF: 4 glucosam-chond fp-lewkql-ha ac 1 EACH capsule 1 ea PO DAILY RF: 0 lorazepam 0.5 MG tablet 0.5 mg PO HS PRNQty: 30 RF: 0 hydrocortisone acetate [Anusol-HC] 25 MG suppository 25 mg RC BID PRNQty: 30 RF: 1 bilberry fruit extract 80 MG capsule 80 mg PO DAILY RF: 0 metoprolol succinate 25 mg tablet extended release 24 hr 25 mg PO DAILY Qty: 90 RF: 4 bupropion HCl [Wellbutrin SR] 150 mg tablet sustained-release 12 hr 150 mg PO DIRECTED RF: 0 Discharge Instructions Instructions: Chest Pain (DC) Stand Alone Forms: Nursing Discharge Form Referrals: Valentina Lloyd MD, [place] [Primary Care Provider] - 01/26/19 8:20 am Activity:: Activity as Tolerated Equipment/Supplies:: No Equipment Needed Diet:: As Tolerated Discharge Orders Discharge Orders: Discharge Order (Routine); Ordered 01/22/19 Ordered By: Chace Kilpatrick Discharge Data Discharge Date/Time-TO BE ENTERED AT DEPARTURE: 01/22/19 12:20 Exam Narrative Exam Narrative: Exam on the day of discharge showed her in no distress she was sitting up smiling with no respiratory difficulty. Her vitals were stable. DS: Data Vitals/I&O Vitals and I&O: Vital Signs Temperature 37 C 01/22/19 08:27 Temperature Source Tympanic 01/22/19 08:27 Pulse 79 01/22/19 10:55 Pulse Rhythm Regular 01/22/19 08:00 Pulse 78 01/21/19 15:20 Respiratory Rate 20 01/22/19 08:27 Respiratory Effort Non-Labored 01/22/19 08:00 Respiratory Depth Normal 01/22/19 08:00 Respiratory Pattern Normal 01/22/19 08:00 Blood Pressure 115/77 01/22/19 08:27 Blood Pressure Mean 97 01/21/19 15:30 Blood Pressure Position Supine 01/21/19 11:08 Pulse Oximetry 96 01/22/19 08:27 Oxygen Delivery Method Room Air 01/22/19 08:27 Oxygen Flow Rate 0 01/22/19 08:27 Pain Level 0 01/21/19 15:40 Comment 01/21/19 15:50 Intake & Output 01/21/19 01/22/19 01/22/19 23:59 11:59 23:59 Intake Total 900 / 1140 240 / 1140 Balance 900 / 1140 240 / 1140 Weight 77.3 kg Intake: Oral 900 / 1140 240 / 1140 Other: Urine Appearance Clear Comment void x 1 Voiding Methods Toilet Labs on day of discharge: Labs from last 24 hours 01/21/19 20:25 Troponin I < 0.02 [facility] Medical History 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) Osteoporosis (Chronic) Gastroesophageal reflux disease (Chronic) Diverticular disease (Chronic 08/19/13) Depressive disorder (Chronic) Chronic pain of toe (Chronic 04/30/18) Cataract (Chronic 04/22/16) Atrophic vaginitis (Chronic) Annual physical exam (Resolved 06/12/15) Bacterial vaginitis (Resolved) Carpal tunnel syndrome (Resolved) Cerumen impaction (Resolved) Chronic left shoulder pain (Resolved) Diarrhea (Resolved) Elevated BP without diagnosis of hypertension (Resolved) Elevated blood pressure reading (Resolved 09/15/17) Female infertility (Resolved) Finger pain, left (Resolved) Hand numbness (Resolved 04/30/18) Shoulder pain (Resolved 10/09/00) Tachycardia (Resolved 10/27/17) Surgical History S/P colonoscopy (Acute ~09/21/18) Colonoscopy planned (Acute ~09/21/18) History of Mohs surgery for squamous cell carcinoma in situ of skin (Resolved) S/P carpal tunnel release (Resolved) S/P laparotomy (Resolved) Extraction of cataract Open Carpal Tunnel release PROCEDURES Family History Mother CAD (coronary artery disease) Essential hypertension COPD (chronic obstructive pulmonary disease) Heart disease Hyperlipidemia Neoplasm Smoker Stroke Father Diabetes Essential hypertension Heart disease Neoplasm Stroke Sister Neoplasm Smoker Sister Neoplasm Sister Smoker Sister Neoplasm Brother Diabetes Neoplasm Brother COPD (chronic obstructive pulmonary disease) Smoker Brother Smoker Brother Essential hypertension Neoplasm Grandfather Lung disease Grandfather Essential hypertension Heart disease Grandmother No problems noted. Grandmother Essential hypertension Heart disease Stroke Son No problems noted. Son No problems noted. Social History Smoking/Tobacco Use Status: Never Alcohol Intake: current Alcohol Intake frequency: a few times a month Alcohol type: wine Drug use: Never Substance use type: does not use Household members: spouse Pets and animals: Yes Pets and animals: dog(s) Duration: 15-30 minutes/day Frequency: 1-2 times per week Milka/Druze: Zoroastrianism Special milka needs: No Do you feel safe at home: Yes Do you feel safe in your relationship?: Yes
== END 2019-01-22 12:20 | disposition home or self-care (01) ==
LOC: ER 14:01 → MS 16:07
PROVIDERS: Admitting Provider Family Medicine; Emergency Provider Physician Assistant; PCP Family Medicine; Visit Provider Family Medicine
DX: R07.9 Chest pain, unspecified (principal); F32.9 Major depressive disorder, single episode, unspecified
CPT/HCPCS: 36415; 80053; 93005; 99217; 99219; 99285; J1650; 71046; 83735; 84484; 85025; 93010; G0378

== ENCOUNTER 2019-01-26 09:13 | Outpatient (CLI) | payer OTHER, SELFPAY ==
[2019-01-26 11:46] LABS: TSH (W/Ref FT4) 1.49 uIU/mL (0.358-3.74)
[2019-01-26 12:18] LABS: Hemoglobin A1C 5.8 % (4.5-6.2)
== END 2019-01-26 09:33 ==
PROVIDERS: PCP Family Medicine; Visit Provider Family Medicine
DX: R00.0 Tachycardia, unspecified (principal)
CPT/HCPCS: 36415; 83036; 84443

== ENCOUNTER 2019-01-27 01:27 | Outpatient (CLI) | payer OTHER, SELFPAY ==
--- NOTE | 2019-01-27 13:39 | MERGE_ITS ---
*[facility]* *[facility]* [address] [place] [address] Date of study: 01/27/2019 Transthoracic Echocardiography M-mode, complete 2D, complete spectral Doppler, and color Doppler *STUDY CONCLUSIONS* Summary: 1. Left ventricle: The cavity size was normal. Wall thickness was normal. Systolic function was normal. The estimated ejection fraction was 60-65%. Wall motion was normal; there were no regional wall motion abnormalities. 2. Right ventricle: The cavity size was normal. Wall thickness was normal. Systolic function was normal. *PATIENT PRESENTATION* Height: 170.2cm ((67in) ) S/D Pressure: 125 / 74 Weight: 72.6kg ((159.7lb) ) BSA: 1.86m^2 Test start time: 01:45 PM. Test stop time: 02:40 PM. 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 This study was interpreted by [facility]. Pertinent images and digital data are archived for permanent storage and are available for subsequent review. No prior study was available for comparison. Study status: Routine. Transthoracic echocardiography. M-mode, complete 2D, complete spectral Doppler, and color Doppler. A Transthoracic Echocardiogram was performed. Scanning was performed from the parasternal, apical, subcostal, and suprasternal notch acoustic windows. Images were obtained using an [id number] cardiac ultrasound machine. Image quality was adequate. Study completion: The patient tolerated the procedure well. History: PMH: Chest pain. R07.9. *CARDIAC ANATOMY* Left ventricle: The cavity size was normal. Wall thickness was normal. Systolic function was normal. The estimated ejection fraction was 60-65%. Wall motion was normal; there were no regional wall motion abnormalities. Diastolic parameters were normal. Aortic valve: Trileaflet; normal thickness leaflets. Mobility was not restricted. Doppler: Transvalvular velocity was within the normal range. There was no stenosis. There was no significant regurgitation. VTI ratio of LVOT to aortic valve: 0.9. Valve area (VTI): 2.8cm^2. Indexed valve area (VTI): 1.5cm^2/m^2. Peak velocity ratio of LVOT to aortic valve: 0.93. Valve area (Vmax): 2.9cm^2. Indexed valve area (Vmax): 1.6cm^2/m^2. Mean velocity ratio of LVOT to aortic valve: 0.93. Valve area (Vmean): 2.9cm^2. Indexed valve area (Vmean): 1.6cm^2/m^2. Mean gradient (S): 5.5mm Hg. Peak gradient (S): 10.2mm Hg. Aorta: Aortic root: The aortic root was normal in size. Mitral valve: Structurally normal valve. Mobility was not restricted. Doppler: Transvalvular velocity was within the normal range. There was no evidence for stenosis. There was no significant regurgitation. Valve area by pressure half-time: 3.9cm^2. Indexed valve area by pressure half-time: 2.1cm^2/m^2. Peak gradient (D): 2.9mm Hg. Left atrium: The atrium was normal in size. Right ventricle: The cavity size was normal. Wall thickness was normal. Systolic function was normal. Pulmonic valve: Doppler: Transvalvular velocity was within the normal range. There was no evidence for stenosis. There was no significant regurgitation. Peak gradient (S): 2.7mm Hg. Tricuspid valve: Structurally normal valve. Doppler: Transvalvular velocity was within the normal range. There was no evidence for stenosis. There was no significant regurgitation. Pulmonary artery: Systolic pressure could not be accurately estimated. Right atrium: The atrium was normal in size. Pericardium: There was no pericardial effusion. Systemic veins: Inferior vena cava: Well visualized. The vessel was patent and normal in size. The respirophasic diameter changes were in the normal range (greater than or equal to 50%). Baseline ECG: Normal sinus rhythm. Measurements Left ventricle Value Reference LV ID, ED, PLAX 4.1 cm 3.5 - 6.0 LV ID, ES, PLAX 2.5 cm 2.1 - 4.0 LV PW thickness, ED, PLAX 0.7 cm LV end-diastolic volume, 1-p A2C 79 ml LV ejection fraction, 1-p A2C 64 % LV end-diastolic volume, 1-p A4C 63 ml LV ejection fraction, 1-p A4C 69 % LV e', lateral 0.13 m/sec LV E/e', lateral 6 LV e', medial 0.097 m/sec LV E/e', medial 9 LV e', average 0.114 m/sec LV E/e', average 7 Ventricular septum Value Reference IVS thickness, ED, PLAX 0.8 cm LVOT Value Reference LVOT ID, A-P 2.0 cm LVOT area 3.1 cm^2 LVOT peak velocity, S 1.49 m/sec LVOT mean velocity, S 1.04 m/sec LVOT VTI, S 32.4 cm LVOT peak gradient, S 8.8 mm Hg LVOT mean gradient, S 4.8 mm Hg Stroke volume (SV), LVOT DP 101 ml Stroke index (SV/bsa), LVOT DP 54 ml/m^2 Aortic valve Value Reference Aortic valve peak velocity, S 1.6 m/sec Aortic valve mean velocity, S 1.11 m/sec Aortic valve VTI, S 36.0 cm Aortic mean gradient, S 5.5 mm Hg Aortic peak gradient, S 10.2 mm Hg VTI ratio, LVOT/AV 0.9 Aortic valve area, VTI 2.8 cm^2 Velocity ratio, peak, LVOT/AV 0.93 Aortic valve area, peak velocity 2.9 cm^2 Velocity ratio, mean, LVOT/AV 0.93 Aortic valve area, mean velocity 2.9 cm^2 Aortic valve area/bsa, mean velocity 1.6 cm^2/m^2 Aorta Value Reference Aortic root ID, ED 3.0 cm Ascending aorta ID, A-P, S 3.2 cm Left atrium Value Reference LA ID, A-P, ES 2.5 cm LA ID/bsa, A-P 1.3 cm/m^2 <=2.2 LA area, ES, A4C 15.8 cm^2 8.8 - 23.4 LA area, ES, A2C 16 cm^2 LA volume/bsa, ES, 1-p A4C 24 ml/m^2 LA volume, ES, 2-p 42 ml LA volume/bsa, ES, 2-p 22 ml/m^2 LA/aortic root ratio 0.83 Mitral valve Value Reference Mitral E-wave peak velocity 0.85 m/sec Mitral A-wave peak velocity 0.66 m/sec Mitral deceleration time 194 ms 150 - 230 Mitral pressure half-time 56 ms Mitral peak gradient, D 2.9 mm Hg Mitral E/A ratio, peak 1.28 Mitral valve area, PHT, DP 3.9 cm^2 Pulmonary veins Value Reference Pulmonary vein peak velocity, S 0.45 m/sec Pulmonary vein peak velocity, D 0.32 m/sec Pulmonary vein velocity ratio, peak, 1.4 S/D Tricuspid valve Value Reference Tricuspid regurg peak velocity 2.2 m/sec Tricuspid peak RV-RA gradient 19.4 mm Hg Right atrium Value Reference RA area, ES, A4C 12.1 cm^2 8.3 - 19.5 Pulmonic valve Value Reference Pulmonic peak gradient, S 2.7 mm Hg Legend: (L) and (H) mauricio values outside specified reference range. I have personally reviewed the images and have reviewed and edited the reported findings. Electronically signed by Calvin Holden 01/27/2019 15:41
== END 2019-01-27 01:47 ==
PROVIDERS: PCP Family Medicine; Visit Provider Family Medicine
DX: R07.9 Chest pain, unspecified (principal)
CPT/HCPCS: 93306

== ENCOUNTER 2019-02-05 00:58 | Outpatient (CLI) | payer OTHER, SELFPAY ==
--- NOTE | 2019-02-05 11:21 | DI.US_ITS ---
SYMPTOMS/DIAGNOSIS: VISION CHANGES, H53.9 CAROTID ULTRASOUND: Routine examination. On the right, no hemodynamically significant velocity elevations are seen. No calcific plaque is present. The right vertebral artery is antegrade. No hemodynamically significant velocity elevations are seen on the left. No calcific plaque disease is present. The left vertebral artery is antegrade. IMPRESSION: No evidence of a hemodynamically significant cervical carotid artery stenosis.
== END 2019-02-05 01:18 ==
PROVIDERS: PCP Family Medicine; Visit Provider Family Medicine
DX: H53.9 Unspecified visual disturbance (principal)
CPT/HCPCS: 93880

== ENCOUNTER 2019-02-11 00:06 | Outpatient (CLI) | payer OTHER, SELFPAY ==
--- NOTE | 2019-02-11 08:30 | ETT_ITS ---
*[facility]* *[facility]* [address] [place] [address] Stress Electrocardiography Marquis protocol Date of study: 02/11/2019 *PATIENT PRESENTATION* Height: 170.2cm (67in) Blood Pressure: Weight: 72.7kg (160lb) BSA: 1.86m^2 Referring physician: Valentina Lloyd Ordering physician: Valentina Lloyd Impressions: Normal study after maximal exercise. Summary: 1. Stress ECG conclusions: Tang treadmill score: 10. This score predicts a low risk of cardiac events. 2. Stress: The target heart rate was achieved. Indication: R07.9. History: REASON FOR VISIT: EPISODES OF RACING HEART AND NON-RADIATING CHEST ACHES AND TWINGES LASTING SECONDS AT A TIME. PT REPORTS NO FURTHER EPISODES SINCE SHE RESTARTED HER METOPRLOL SUCCINATE ER 25 MG DAILY. Risk factors: Family history of coronary artery disease. Hypertension. Dyslipidemia. ALLERGIES: ALENDRONATE SODIUM. LATEX. RISEDRONATE SODIUM. SULFA. MEDICATIONS: METOPROLOL SUCCINATE ER 25 MG DAILY. GLUCOSAM-CHOND PL-MOLXSD-MF AC 1 DAILY. ESTRADIOL 10 MCG VAGINAL TABLET. CALCIUM CARBONATE-VITAMIN D3 2 TABS DAILY. BUPROPION HCL 150 MG DIRECTED. ASPIRIN 81 MG DAILY. Protocol: Marquis protocol. Baseline ECG: SINUS RHYTHM HR 72 BPM. Stress protocol: + +---+ + !Stage !HR !BP (mmHg) ! + +---+ + !Baseline supine !72 !130/80 (97) ! + +---+ + !Baseline standing !76 !130/76 (94) ! + +---+ + !Stage I; 1.7mph, 10degrees; 3 min !121!150/92 (111)! + +---+ + !Stage II; 2.5mph, 12degrees; 3 min!136!152/90 (111)! + +---+ + !Peak stress !156! ! + +---+ + !Recovery; 1 min !130!160/92 (115)! + +---+ + !Recovery; 3 min !88 !140/80 (100)! + +---+ + !Recovery; 6 min !87 !128/76 (93) ! + +---+ + * Stress results: Maximal heart rate during stress was 156bpm (99% of maximal predicted heart rate). The maximal predicted heart rate was 158bpm. The target heart rate was achieved. The rate-pressure product for the peak heart rate and blood pressure was [id number] Hg/min. Stress ECG: EXERCISE PORTION OF STRESS TEST ENDED IN 10 MINUTES & 4 SECONDS DUE TO SHORTNESS OF BREATH AND FATIGUE. NORMAL HEART RATE AND BLOOD PRESSURE RESPONSE TO EXERCISE MAX HR = 156 % OF TARGET = 98 OCCASIONAL PVC & PAC APPROXIMATE METS ACHIEVED = 11.93 NO ANGINA NO SIGNIFICANT ST SEGMENT CHANGES ABOVE AVERAGE FUNCTIONAL CAPACITY FOR EXERCISE. Tang treadmill score: 10. This score predicts a low risk of cardiac events. Study data: Isaiah Flores MD supervised and was readily available during the procedure. This study was interpreted by [facility]. Study status: Routine. Consent: The risks, benefits, and alternatives to the procedure were explained to the patient and informed consent was obtained. Procedure: Initial setup. A baseline ECG was recorded. Surface ECG leads and manual cuff blood pressure measurements were monitored. Heart sounds: Normal. Lung sounds: Normal. Treadmill exercise testing was performed using the Marquis protocol. Study completion: The patient tolerated the procedure well and was discharged from the lab. Discharge: The patient left the laboratory in stable condition. Birthdate: Patient birthdate: 1955. Sex: Gender: female. Study date: Study date: 02/11/2019. Study time: 00:01 AM. Signature Documentation: The Stress ECG portion of this study was interpreted by Isaiah Flores MD. Electronically signed by Isaiah Flores 02/11/2019 10:27
== END 2019-02-11 00:26 ==
PROVIDERS: PCP Family Medicine; Visit Provider Family Medicine
DX: R07.9 Chest pain, unspecified (principal); R00.0 Tachycardia, unspecified; I10 Essential (primary) hypertension; Z82.49 Family history of ischemic heart disease and other diseases of the circulatory system
CPT/HCPCS: 93017

== ENCOUNTER 2020-03-28 20:32 | Outpatient (REF) | payer OTHER, SELFPAY ==
[2020-03-28 20:26] LABS: Vitamin B12 284 pg/mL (193-986)
== END 2020-03-28 20:52 ==
LOC: LBN 20:32
PROVIDERS: PCP Family Medicine; Visit Provider Family Medicine
DX: M25.551 Pain in right hip (principal); M79.2 Neuralgia and neuritis, unspecified
CPT/HCPCS: 82607

== ENCOUNTER 2020-10-06 02:46 | Outpatient (CLI) | payer OTHER, SELFPAY ==
--- NOTE | 2020-10-06 07:30 | DI.RAD_ITS ---
EXAM: XR HIP RT COMPLETE AP PELVIS CLINICAL HISTORY: r hip pain, M25.551 TECHNIQUE: COMPARISON: No exams were available for comparison FINDINGS: Four views were obtained. There is mild narrowing of the cartilaginous joint spaces of both hips. M inimal acetabular marginal osteophyte formation noted bilaterally. Femoral heads appear well maintai chelita. Mild degenerative changes of both SI joints noted as well as moderate degenerative change of the lowe r lumbar spine. IMPRESSION: Mild DJD both hips. RADIATION DOSE DELIVERED: Total DLP
== END 2020-10-06 03:06 ==
PROVIDERS: PCP Family Medicine; Visit Provider Family Medicine
DX: M16.0 Bilateral primary osteoarthritis of hip (principal)
CPT/HCPCS: 73502

== ENCOUNTER 2021-07-17 04:29 | Outpatient (CLI) | payer OTHER, SELFPAY ==
[2021-07-17 13:05] LABS: ALT 31 U/L (14-59); AST 24 U/L (15-37); Alkaline Phosphatase 136 U/L (46-116); Anion Gap 9.3 mmol/L (3-11); BUN 17 mg/dL (7-18); Bilirubin, Total 0.8 mg/dL (0.2-1.0); CO2 28.7 mmol/L (21.0-32.0); CREATININE 0.9 mg/dL (0.55-1.02); Calcium 9.1 mg/dL (8.5-10.1); Chloride 106 mmol/L (98-107); Glucose 86 mg/dL (74-106); Sodium 144 mmol/L (136-145); Total Protein 6.9 g/dL (6.4-8.2)
== END 2021-07-17 04:30 | disposition home or self-care (01) ==
LOC: LOS 04:30
PROVIDERS: PCP Family Medicine; Visit Provider Family Medicine
DX: I10 Essential (primary) hypertension (principal); F32.9 Major depressive disorder, single episode, unspecified
CPT/HCPCS: 36415; 80053

== ENCOUNTER 2021-08-15 01:03 | Outpatient (CLI) | payer OTHER, SELFPAY ==
--- NOTE | 2021-08-15 06:15 | DI.MAMMO_ITS ---
Exam(s) MAMMO SCREENING EXAM: MAMMO SCREENING CLINICAL HISTORY: screening,Z12.39 TECHNIQUE: Bilateral full field digital CC and MLO mammographic images were obtained with 3D tomosyn thesis and utilizing computer aided detection (CAD). COMPARISON: Available for comparison. FINDINGS: Masses/Architectural Distortion: None seen. Microcalcifications: No suspicious pleomorphic-type are seen. Skin Thickening/Nipple Retraction: None. IMPRESSION: 1. No significant interval change with no specific features of malignancy noted. 2. Unless there is more urgent need, screening mammography is recommended, as per [employer] guidelines. BI-RADS Category 1 - Negative Breast Density - Category C - Heterogeneously dense Breast density category C or D implies that the patient has dense breast tissue. Dense breast tissue is very common and is not abnormal but dense breast tissue can make it harder to find cancer on a ma mmogram. Also, dense breast tissue may increase their breast cancer risk. This information about the result of the mammogram report was provided to the patient to raise their awareness. Use this report when you speak with the patient about their risks for breast cancer, which includes their family hist ory. At that time, you may recommend for more screening tests (Ultrasound or MRI) as they might be us eful based on their risk. A negative radiographic report should not delay biopsy if a dominant or clinically suspicious mass is present. Up to ten percent of cancers are not identified on mammography. A negative report may reinforce clinical impression. Adenosis and dense breasts may obscure an underlying neoplasm. False positive reports average 6 to 10%. Patient will receive a letter notifying them of these results.
== END 2021-08-15 01:23 ==
PROVIDERS: PCP Family Medicine; Visit Provider Family Medicine
DX: Z12.31 Encounter for screening mammogram for malignant neoplasm of breast (principal); R92.8 Other abnormal and inconclusive findings on diagnostic imaging of breast
CPT/HCPCS: 77063; 77067

== ENCOUNTER 2022-05-30 20:08 | Outpatient (REF) | payer MEDICARE, SELFPAY ==
[2022-05-30 20:55] LABS: Bilirubin Small (Negative); Blood Negative (Negative); Clarity Cloudy (Clear); Glucose Negative (Negative); Ketones Trace mg/dL (Negative); Leukocyte Esterase Negative (Negative); Nitrite Positive (Negative); Specific Gravity >= 1.030 (1.005-1.025); pH 5.5 (5-8)
[2022-05-30 21:06] LABS: C & S Indicated? Yes; Crystals Many Amorphous HPF (Negative)
== END 2022-05-30 20:09 | disposition home or self-care (01) ==
LOC: LBN 20:08
PROVIDERS: PCP Family Medicine; Visit Provider Physician Assistant
DX: R39.89 Other symptoms and signs involving the genitourinary system (principal)
CPT/HCPCS: 81003; 81015; 87086

== ENCOUNTER 2022-06-12 08:41 | Outpatient (CLI) | payer MEDICARE, SELFPAY ==
[2022-06-12 12:29] LABS: Abs Immature Grans 0.01 10^3/uL (0.0-0.06); Absolute Basophil Count 0.01 10^3/uL (0.0-0.2); Absolute Eosinophil Count 0.02 10^3/uL (0.0-0.7); Absolute Lymphocyte Count 1.88 10^3/uL (1.2-3.4); Absolute Monocyte Count 0.33 10^3/uL (0.1-0.8); Absolute Neutrophil Count 1.73 10^3/uL (1.2-6.7); Basophils % 0.3; Eosinophils % 0.5; HCT 39.6 % (36.0-46.0); HGB 13.1 g/dL (11.2-15.7); Immature Grans % 0.3; Lymphocytes % 47.2; MCH 28.8 pg (27.0-33.0); MCHC 33.1 % (32.0-36.0); MCV 87 fL (80-95); MPV 8.7 fL (8.0-11.0); Monocytes % 8.3; Neutrophils % 43.4; Platelet Count 219 10^3/uL (130-400); RBC 4.55 10^6/uL (3.93-5.22); RDW 12.4 % (11.7-14.6); RDW-SD 39.5 fL; WBC 3.98 10^3/uL (4.4-10.8)
[2022-06-13 10:48] LABS: Lyme Ab w Rflx to Lyme Confirm Negative (Negative)
[2022-06-17 21:31] LABS: Anaplasma phagocytophilum Negative (Negative); B. miyamotoi PCR Negative (Negative); Babesia divergens/MO-1 Negative (Negative); Babesia duncani Negative (Negative); Babesia microti Negative (Negative); Ehrlichia chaffeensis Negative (Negative); Ehrlichia ewingii/canis Negative (Negative); Ehrlichia muris eauclairensis Negative (Negative)
== END 2022-06-12 08:42 | disposition home or self-care (01) ==
LOC: LOS 08:41
PROVIDERS: PCP Family Medicine; Visit Provider Physician Assistant
DX: R50.9 Fever, unspecified (principal); R53.81 Other malaise; M79.18 Myalgia, other site; W57.XXXA Bitten or stung by nonvenomous insect and other nonvenomous arthropods, initial encounter; T14.8XXA Other injury of unspecified body region, initial encounter
CPT/HCPCS: 36415; 87798; 85025; 86618

== ENCOUNTER 2022-08-15 14:40 | Outpatient (REF) | payer MEDICARE, SELFPAY ==
--- NOTE | 2022-08-15 14:00 | PAPFT_PTH ---
PATIENT: Asha Starr LOC: [facility] U#:[id number] AGE/SX: 66/F ROOM: RE08/15/[address]: Valentina Lloyd MD, DC : 1955 BED: DIS: 08/15/2022 SPEC #: [id number] RECD: 08/16/22 12:48 STATUS: MAMIE REOscar #: [id number] EMMANUEL: 08/15/22 14:[address]: Valentina Lloyd DEPT: [facility] Cytology RECD BY: Beti Ruiz Tissues: 1 - CX/ENDOCX FOR PAP SMEARS Procedures: PAP THIN PREP/UVM Screening HPV DNA PROBE Comments: [id number]
[2022-08-15 21:24] LABS: Bilirubin Small (Negative); Blood Negative (Negative); Clarity Cloudy (Clear); Glucose Negative (Negative); Ketones Trace mg/dL (Negative); Leukocyte Esterase Negative (Negative); Nitrite Negative (Negative); Specific Gravity >= 1.030 (1.005-1.025)
[2022-08-17 10:46] LABS: COVID-19 RT-PCR UVMMC Result Positive (Negative)
== END 2022-08-15 14:41 | disposition home or self-care (01) ==
LOC: LBN 14:40
PROVIDERS: PCP Family Medicine; Visit Provider Family Medicine
DX: R50.9 Fever, unspecified (principal); R51.9 Headache, unspecified; Z12.4 Encounter for screening for malignant neoplasm of cervix; Z11.51 Encounter for screening for human papillomavirus (HPV); Z20.822 Contact with and (suspected) exposure to COVID-19; Z01.419 Encounter for gynecological examination (general) (routine) without abnormal findings
CPT/HCPCS: 88142; U0003; 81003; 87624

== ENCOUNTER 2023-04-16 00:31 | Outpatient (CLI) | payer MEDICARE, SELFPAY ==
--- NOTE | 2023-04-16 07:30 | DI.US_ITS ---
Exam(s) US PELVIS TRANSVAGINAL EXAM: US PELVIS TRANSVAGINAL CLINICAL HISTORY: dysfunctional uterine bleeding,n93.8. TECHNIQUE: Transabdominal and transvaginal pelvic ultrasound was performed using standard protocol. COMPARISON: No priors for comparison. FINDINGS: UTERUS: Position: Anteverted. Size: 4.2 long by 2.1 AP by 3.3 transverse cm Endometrium: 0.1 cm. Normal for patient's menstrual status. There is a small amount of fluid seen wit hin the endometrial canal. Myometrium: There is a subtle hypoechoic area in the body measuring 1.8 x 1.5 x 1.5 cm. This may rep resent a fibroid. Cervix: Unremarkable. OVARIES: The ovaries were not visualized transabdominally or transvaginally. No suspicious adnexal m asses are seen. CUL-DE-SAC: Free fluid: None. Other: There are prominent parametrial vessels. IMPRESSION: 1. Uterine fibroid. Endometrial stripe within normal limits. 2. Small amount of fluid seen within the endometrial canal. 3. The ovaries were not visualized transabdominally or transvaginally. No suspicious adnexal masses are seen. DATA REPOSITORY:
== END 2023-04-16 00:51 ==
LOC: DI 00:33
PROVIDERS: PCP Family Medicine; Visit Provider Family Medicine
DX: N93.8 Other specified abnormal uterine and vaginal bleeding (principal); D25.9 Leiomyoma of uterus, unspecified
CPT/HCPCS: 76830; 76856

== ENCOUNTER → 2023-09-16 00:44 | Outpatient (CLI) | payer MEDICARE, SELFPAY ==
--- NOTE | 2023-09-16 14:17 | DI.RAD_ITS ---
Exam(s) XR ARTHRITIS SERIES EXAM: XR ARTHRITIS SERIES CLINICAL HISTORY: 3rd finger ip enlargement,PAIN,m79.644. TECHNIQUE: 2D digital imaging was performed. COMPARISON: No exams were available for comparison FINDINGS: Two views both hands: PA and Norgaard/ball catcher's views. There are no fractures evident. Minimal if any significant degenerative changes evident at the 1st c arpometacarpal joints. There is mild uniform narrowing of the metacarpophalangeal joints without ero sions at these levels. The most significant findings are at the level the proximal interphalangeal joints. Most evident at the PIP joints of the 3rd, 4th, and 5th right fingers and 5th left finger. Significant loss of joint space and pencil in cup deformity evident of the PIP joint of the 5th right finger. Also mild sublu xation at the PIP joint of the 3rd finger right hand. There is relative sparing of the PIP joints of both 2nd-index fingers and the interphalangeal joints of both thumbs. DIP joints exhibit milder degenerative changes, most evident at the DIP joint of the 5th finger of th e right hand. IMPRESSION: As above. The most significant involvement is at the level the proximal interphalangeal joints, as d escribed above. DATA REPOSITORY: RADIATION DOSE DELIVERED:
--- NOTE | 2023-09-16 14:18 | DI.MAMMO_ITS ---
Exam(s) MAMMO SCREENING EXAM: MAMMO SCREENING CLINICAL HISTORY: screening,Z12.39. TECHNIQUE: Bilateral full field digital CC and MLO mammographic images were obtained with 3D tomosyn thesis and utilizing computer aided detection (CAD). COMPARISON: Prior mammograms were reviewed. FINDINGS: Fibroglandular tissue pattern is again noted be dense bilaterally, this somewhat decreasing the sensi tivity of the mammogram for finding hidden underlying lesions. There are no CAD designations. There are no new spiculated masses nor malignant appearing microcalcification groups. There is no significant architectural distortion nor skin thickening-retraction. IMPRESSION: No radiographic evidence of malignancy. BI-RADS Category 1 - Negative Breast Density - Category C - Heterogeneously dense Breast density Category C or D implies that the patient has dense breast tissue. Dense breast tissue can make it harder to find cancer on a mammogram. Dense breast tissue is also associated with an incr eased risk of breast cancer. This information about the result of the mammogram report was provided to the patient to raise their awareness. Use this report when you speak with the patient about their risks for breast cancer, which includes their family history. At that time, you may recommend additional screening tests (Ultrasoun d or MRI) as these tests may add significant information. A negative radiographic report should not delay biopsy if a dominant or clinically suspicious mass is present. Up to ten percent of cancers are not identified on mammography. A negative report may reinforce clinical impression. Adenosis and dense breasts may obscure an underlying neoplasm. False positive reports average 6 to 10%. Patient will receive a letter notifying them of these results.
== END ==
PROVIDERS: PCP Family Medicine; Visit Provider Family Medicine
DX: Z12.31 Encounter for screening mammogram for malignant neoplasm of breast (principal); R92.333 Mammographic heterogeneous density, bilateral breasts; M19.041 Primary osteoarthritis, right hand; M19.042 Primary osteoarthritis, left hand
CPT/HCPCS: 77063; 77067; 73120

== ENCOUNTER → 2023-09-19 02:08 | Outpatient (CLI) | payer MEDICARE, SELFPAY ==
--- NOTE | 2023-09-19 07:15 | DI.DEXA_ITS ---
Exam(s) XR DEXA BONE DENSITY W/WO YOANDY EXAM: XR DEXA BONE DENSITY W/WO YOANDY CLINICAL HISTORY: postmenopausal,screening for osteoporosis,z78.0 TECHNIQUE: Routine DEXA evaluation of the lumbar spine, hip, or forearm. COMPARISON: Prior DEXA scan January 2009 FINDINGS: Performed on a [place] unit. Lateral image: No compression fracture evident. Lumbar Spine total T-score: -4.3. Prior reading in 2008 was -3.0 Hip total T-score:-2.1. Prior 2008 reading was -1.5 Independent reading at the level of the femoral neck yields T-score of -2.5 Forearm total T-score: -4.8 IMPRESSION: Bone mineral density measures in the osteoporosis range. Fracture risk is high. Note: Any spine fracture indicates 5x risk for subsequent spine fracture and 2x risk for subsequent h ip fracture. World Health Organization criteria for BMD interpretation classify patients: Normal...... T- Score at or above -1.0 Osteopenic... T- Score between -1.0 and -2.5 Osteoporosis... T-Score at or below -2.5
== END ==
PROVIDERS: PCP Family Medicine; Visit Provider Family Medicine
DX: Z78.0 Asymptomatic menopausal state (principal); Z13.820 Encounter for screening for osteoporosis; M81.0 Age-related osteoporosis without current pathological fracture
CPT/HCPCS: 77080

== ENCOUNTER 2023-09-19 14:06 | Outpatient (CLI) | payer MEDICARE, SELFPAY ==
[2023-09-19 10:20] LABS: HCT 41.9 % (36.0-46.0); HGB 14.1 g/dL (11.2-15.7); MCH 28.9 pg (27.0-33.0); MCHC 33.7 % (32.0-36.0); MCV 86 fL (80-95); MPV 8.7 fL (8.0-11.0); Platelet Count 242 10^3/uL (130-400); RBC 4.88 10^6/uL (3.93-5.22); RDW 12.5 % (11.7-14.6); RDW-SD 39.7 fL; WBC 3.48 10^3/uL (4.4-10.8)
[2023-09-19 10:21] LABS: ESR 12 mm/hr (0-30)
[2023-09-19 10:45] LABS: ALT 25 U/L (14-59); AST 20 U/L (15-37); Albumin 3.9 g/dL (3.4-5.0); Alkaline Phosphatase 185 U/L (46-116); Anion Gap 11.2 mmol/L (3-11); BUN 15 mg/dL (7-18); Bilirubin, Total 0.8 mg/dL (0.2-1.0); CO2 24.8 mmol/L (21.0-32.0); CREATININE 0.9 mg/dL (0.55-1.02); Calcium 9.6 mg/dL (8.5-10.1); Calculated LDL 171 mg/dL (<100); Chloride 104 mmol/L (98-107); Cholesterol 265 mg/dL (<200); Estimated GFR 70.51 (mL/min/1.73m2); Glucose 106 mg/dL (74-106); HDL Cholesterol 80 mg/dL (40-60); Sodium 140 mmol/L (136-145); Total Protein 7.7 g/dL (6.4-8.2); Triglyceride 70 mg/dL (<150)
[2023-09-19 10:55] LABS: Uric Acid 4.7 mg/dL (2.6-6.0)
[2023-09-19 10:56] LABS: C-Reactive Protein < 0.05 mg/dL (0.0-0.3)
[2023-09-19 19:00] LABS: Rheumatoid Factor <8.6 IU/mL (<12.0)
[2023-09-22 09:17] LABS: Cyclic Citrullinated Peptide <2.5 U/mL (<5.0)
[2023-09-22 14:54] LABS: ANA Interpretation Negative (Negative)
[2023-09-22 15:04] LABS: HLA-B27 Result Negative
== END 2023-09-19 14:07 | disposition home or self-care (01) ==
LOC: LBO 14:07
PROVIDERS: PCP Family Medicine; Visit Provider Family Medicine
DX: I10 Essential (primary) hypertension (principal); M79.644 Pain in right finger(s)
CPT/HCPCS: 36415; 80053; 80061; 85027; 85652; 86200; 86812; 84550; 86038; 86140; 86431

== ENCOUNTER → 2023-09-24 09:54 | Outpatient (BNVA) | payer MEDICARE, SELFPAY | PROVIDERS: PCP Family Medicine; Referring Provider Family Medicine; Visit Provider Surgery | DX: Z12.11 Encounter for screening for malignant neoplasm of colon (principal); Z80.0 Family history of malignant neoplasm of digestive organs ==

== ENCOUNTER 2023-09-25 05:24 | Outpatient (CLI) | payer MEDICARE, SELFPAY ==
[2023-09-25 16:18] LABS: PHOSPHORUS 4.1 mg/dL (2.6-4.7); TSH (W/Ref FT4) 1.75 uIU/mL (0.36-3.74)
[2023-09-25 16:33] LABS: Vitamin D 25 Total 45.9 ng/mL (30-100)
[2023-09-26 19:44] LABS: Parathyroid Hormone,Intact 53 pg/mL (19-88)
[2023-09-29 15:31] LABS: Alkaline Phosphatase 164 U/L (35 - 104); Bone % 46.7 % (19.1-67.7); Intestine 2.6 IU/L (0.0-11.0); Intestine % 1.6 % (0.0-20.6); Liver % 45.8 % (27.8-76.3); Liver 2% 5.9 % (0.0-8.0)
== END 2023-09-25 05:25 | disposition home or self-care (01) ==
LOC: LBO 05:24
PROVIDERS: PCP Family Medicine; Visit Provider Family Medicine
DX: M81.0 Age-related osteoporosis without current pathological fracture (principal); R74.8 Abnormal levels of other serum enzymes
CPT/HCPCS: 36415; 82306; 84075; 84080; 82340; 82570; 83970; 84100; 84443

== ENCOUNTER 2023-09-27 10:58 | Outpatient (REF) | payer MEDICARE, SELFPAY ==
[2023-09-27 13:30] LABS: Creatinine,24hr Ur 1.16 g/24hr (0.60-1.80); Creatinine,Urine 72.38 mg/dL; Total Volume 1600 ml
[2023-09-28 09:22] LABS: Calcium Urine 10.7 mg/dL (See Note); Calcium Urine 24 hr 171 mg/24hr (100-300); Timed Urine Volume 1600 mL
== END 2023-09-27 10:59 | disposition home or self-care (01) ==
LOC: LBN 10:58
PROVIDERS: PCP Family Medicine; Visit Provider Family Medicine
DX: M81.0 Age-related osteoporosis without current pathological fracture (principal)
CPT/HCPCS: 81050; 82340; 82570

== ENCOUNTER 2023-09-29 11:14 | Day surgery (SDC) | payer MEDICARE, SELFPAY ==
--- NOTE | 2023-09-28 15:02 | W.PM.DSUDISC ---
Date of service: 09/29/23 Time of Service: 13:16 Discharge Plan Disposition Patient Disposition: Home Condition: Good Discharge Details Reason For Visit: screening colonoscopy Attending Provider: Darrion Harris Primary Care Provider: Valentina Lloyd Home Meds and New Rx's Prescriptions: Continued Fish Oil 100-160-1,000 mg capsule 1 cap PO DAILY lorazepam 1 mg tablet 1 mg PO DAILY PRN (Reason: panic attack(s)) Qty: 5 0RF calcium carbonate-vitamin D3 [Caltrate with Vitamin D3] 1 EACH tablet 2 tab PO DAILY Patient Comments: 630mg Calcium 500iu Vit D Rx Instructions: 630ca and 500iu D3 triamcinolone acetonide 0.1 % ointment 1 applic Topical DAILY PRN (Reason: rash) Qty: 80 2RF estradiol [Yuvafem] 10 mcg tablet 10 mcg VG .COMPLEX Qty: 108 4RF Rx Instructions: 10 mcg VG 3 times weekly; metoprolol succinate 25 mg tablet extended release 24 hr 25 mg PO DAILY Qty: 90 4RF bupropion HCl [Wellbutrin SR] 150 mg tablet sustained-release 12 hr 150 mg PO DAILY Qty: 90 4RF atorvastatin 10 mg tablet 10 mg PO DAILY Qty: 90 4RF nitroglycerin [Nitrostat] 0.4 mg tablet, sublingual 0.4 mg SL Q5M MDD 3 doses PRN (Reason: chest pain) Qty: 30 0RF Rx Instructions: until response; do not exceed 3 doses per episode Discontinued polyethylene glycol 3350 17 gram/dose powder 238 g PO ONCE Qty: 238 0RF Rx Instructions: take per colonoscopy instructions bisacodyl [Dulcolax (bisacodyl)] 5 mg tablet,delayed release (DR/EC) 5 mg PO ONCE Qty: 4 0RF Rx Instructions: take per colonoscopy instructions Discharge Instructions Instructions: Colorectal Polyps (GEN) Additional Instructions: Asha, we were able to complete your colonoscopy today without any difficulty. I did find a polyp within your rectum. I was able to remove this completely. This will be tested to determine the nature of the polyp, and once I have the results of that, I will be in touch with my recommendations for your next colonoscopy. If you have any questions in the meantime, please do not hesitate to call. 1. If tolerated, consume a soft, low fiber diet for 1-2 days. 2[address] Do not drive, drink alcohol, operate machinery, make critical decisions, or do activities that require coordination or balance for 24 hours. 3. Because air was put into your colon during the procedure, expelling air from your rectum (passing gas or farting) is normal. 4. You may not have a bowel movement for 1-3 days because of the colonoscopy prep. This is normal. 5. Go directly to the emergency room if you notice any of the following: Develop chills (warm to touch), or if you have a thermometer and your temperature is above 101 Difficulty breathing or difficultly swallowing Persistent vomiting Severe abdominal pain, other than gas cramps Severe chest pain Black, tarry stools Any bleeding ? exceeding one tablespoon 6. Call your physician if the site where your intravenous was started becomes red, swollen, painful, and warm to touch. 7. Your physician has reviewed your pre-procedure medications. Please continue to take those medications as previously ordered. You will be given specific information/education regarding any changes to your medications before leaving. Activity:: Activity as Tolerated Diet:: As Tolerated Discharge Orders Discharge Orders: Discharge Order (Routine); Ordered 09/28/23 Ordered By: Darrion Harris DS: Diagnosis Discharge Diagnosis (1) Screen for colon cancer: Status: Acute Asessment and Plan: Follow-up on polypectomy results
--- NOTE | 2023-09-28 15:04 | W.COLOREPORT ---
Date of service: 09/29/23 Time of Service: 13:17 Colonoscopy Report Date of procedure: 09/29/23 Pre-op diagnosis general: screening colonoscopy Post-op diagnosis procedure note: other (Rectal polyp) Procedure: Colonoscopy with polypectomy Surgeon: Darrion Harris Anesthesia Type: General:No Airway Estimated blood loss (mL): 5 Pathology: other (0.75 cm rectal polyp) Complications: None Disposition: same day Indications: Asha is a 67 year old woman with a first degree family history of colon cancer who needs her next screening colonoscopy Prep: Miralax/Dulcolax Procedure Start Time: 12:19 Procedure End Time: 12:49 Retraction Time: 21 Findings: 0.75 cm rectal polyp Procedure Description: After the induction of monitored anesthetic care, and with the patient in left lateral decubitus position, I began by performing an external anorectal exam.? Perineum and skin were normal, as was the anal verge.? There was no evidence of external hemorrhoids.? Next, I performed a digital rectal exam.? I did note appreciate any abnormal findings.? Next, I advanced a colonoscope into the rectal vault.? I performed retroflexion.? This appeared normal.? Using insufflation, I then advanced the colonoscope beyond the rectal folds and into the sigmoid colon before advancing towards the cecum.? The scope was noted to be in the cecum by identification of the ileocecal valve and appendiceal orifice.? I then began withdrawing the colonoscope using repeated irrigation as necessary for full evaluation of the colonic mucosa. ?Once the scope was withdrawn to the level of the rectum, great care was taken to examine portions of the rectal folds.? In the upper portion of the rectum, right at the rectosigmoid junction was a 0.75 cm rectal polyp. It was pedunculated. I was able to remove this with cold forcep polypectomy. There was minimal bleeding. Finally, the scope was withdrawn and the patient was brought to the same-day surgery recovery unit as the anesthetic wore off. ?The findings and instructions were shared with the patient prior to discharge. [place] Bowel Prep [place] Bowel Prep Right Colon: 3 Left Colon: 3 Transverse Colon: 3 Total Score: 9
--- NOTE | 2023-09-29 07:16 | W.ANESPRE ---
General Info Date of Service Date Performed: 09/29/23 Height: 5 ft 7 in Weight: 73.482 kg Body Mass Index (BMI): 25.3 Surgical Procedure: Operation Date: 09/29/23 12:50 Proposed Procedure Side Surgeon zehra Harris MD Meds Allergies and Home Medications Allergies Allergy/AdvReac Type Severity Reaction Status Date / Time Sulfa (Sulfonamide Allergy Intermediate Skin Rash Verified 09/29/23 11:35 Antibiotics) alendronate sodium Allergy Unknown Inflammation Verified 09/29/23 11:35 of esophagus latex Allergy Unknown Skin Rash Verified 09/29/23 11:35 risedronate sodium Allergy Unknown inflammation Verified 09/29/23 11:35 of esophagus Home Medication Medication Instructions Recorded calcium carbonate 600 mg-vitamin 2 tab PO DAILY 02/23/13 D3 20 mcg (800 unit) tablet (Caltrate with Vitamin D3) nitroglycerin 0.4 mg sublingual 0.4 mg sublingual Q5M PRN chest 01/22/19 tablet (Nitrostat) pain #30 tabs triamcinolone acetonide 0.1 % 1 applic topical DAILY PRN rash 01/29/21 topical ointment #80 grams estradiol 10 mcg vaginal tablet 10 mcg vaginal .COMPLEX #108 tabs 02/02/23 (Yuvafem) metoprolol succinate 25 mg 25 mg PO DAILY #90 tabs 02/24/23 tablet,extended release 24 hr lorazepam 1 mg tablet 1 mg PO DAILY PRN panic attack(s) 03/06/23 #5 tabs bupropion HCl 150 mg tablet,12 hr 150 mg PO DAILY #90 tabs 07/29/23 sustained-release (Wellbutrin SR) atorvastatin 10 mg tablet 10 mg PO DAILY #90 tabs 09/22/23 omega 3-gry-deu-fish oil 100 1 cap PO DAILY 09/24/23 mg-160 mg-1,000 mg capsule (Fish Oil) Current Visit Medications: Current Medications Generic Name Dose Route Start Last Admin Trade Name Freq PRN Reason Stop Dose Admin Hyoscyamine Sulfate 0.125 mg 09/28/23 15:05 Hyoscyamine 0.125 Mg Sl/Oral/Chew SL 10/28/23 15:04 DIRECTED PRN Ringer's Solution 1,000 mls @ 80 mls/hr 09/29/23 06:00 IV 09/29/23 23:59 INFUSION WARREN IV Miscellaneous Supplies 1 each 09/29/23 06:00 Iv Access IV 09/29/23 23:59 DIRECTED WARREN Ondansetron HCl 4 mg 09/28/23 15:05 Ondansetron 4 Mg/2 Ml Vial IVP 10/28/23 15:04 Q4H PRN PRN Nausea / Vomiting Sodium Chloride 0 ml 09/29/23 06:00 Normal Saline Flush 10 Ml Syr IV 09/29/23 23:59 PRN PRN Sodium Chloride 0 ml 09/29/23 06:00 Normal Saline 10 Ml Vial IJ 09/29/23 23:59 DIRECTED PRN Sterile Water 0 ml 09/29/23 06:00 Water,Injection,Sterile 10 Ml Vial IJ 09/29/23 23:59 DIRECTED PRN PFSH Active Problems Active Problems: Problem Status Onset Code Screen for colon cancer Z12.11 Elevated alkaline phosphatase level R74.8 Arthralgia M25.50 Pain in right finger(s) M79.644 Family history of colon cancer Z80.0 DUB (dysfunctional uterine bleeding) N93.8 COVID-19 U07.1 Hypertension I10 Vaccine counseling Z71.89 Encounter for administration of vaccine Z23 Neuralgia M79.2 Right hip pain M25.551 Shoulder pain, left M25.512 Annual physical exam Z00.00 Tachycardia R00.0 Vitreous detachment 08/08/14 H43.819 Osteoporosis M81.0 Gastroesophageal reflux disease K21.9 Diverticular disease 08/19/13 K57.90 Depressive disorder F32.9 Chronic pain of toe 04/30/18 M79.676, G89.29 Cataract 04/22/16 H26.9 Atrophic vaginitis N95.2 Medical History Medical History Bacterial vaginosis (06/20/15) Carpal tunnel syndrome Chronic left shoulder pain (07/31/17) Female infertility Cellulitis Chest pain, rule out acute myocardial infarction Carpal tunnel syndrome EMG 09/15=neg bilaterally Female infertility Diarrhea history of; now resolved Cerumen impaction 06/12/15 Bacterial vaginitis 06/20/15 Finger pain, left 07/29/17 Chronic left shoulder pain 07/31/17 Tachycardia (10/27/17) Shoulder pain (10/09/00) biceptal groove CA++; MRI 11/2206-partial thickness supra tear. Left DJD Hand numbness (04/30/18) Elevated blood pressure reading (09/15/17) Elevated BP without diagnosis of hypertension Annual physical exam (06/12/15) Surgical History Surgical History Status post carpal tunnel release S/P laparotomy 11/10/87 exploratory S/P carpal tunnel release 11/10/05 bilateral Colonoscopy planned (~09/21/18) Dr Barron: Family Hx colon cancer S/P colonoscopy (~09/21/18) History of Mohs surgery for squamous cell carcinoma in situ of skin 05/2018 (FACE) PROCEDURES EXPLORATORY [place]OTOM[place] [facility] [place] Carpal Tunnel release B/L 2006-Pt. denies stated she never had this done Extraction of cataract Tobacco Smoking/Tobacco Use Status: Never Passive smoking exposure: Yes Alcohol Alcohol Intake: current Alcohol intake frequency: holidays/special occasions only Alcohol type: wine Substance Use Substance use: Never Substance use type: does not use Vital Signs and Lab Results Lab Results Blood Type / Crossmatch: No Data to Display Complete Blood Count: White Blood Count 3.48 10^3/uL (4.4-10.8) L 09/19/23 09:35 Red Blood Count 4.88 10^6/uL (3.93-5.22) 09/19/23 09:35 Hemoglobin 14.1 g/dL (11.2-15.7) 09/19/23 09:35 Hematocrit 41.9 % (36.0-46.0) 09/19/23 09:35 Platelet Count 242 10^3/uL (130-400) 09/19/23 09:35 Complete Metabolic Panel: Sodium 140 mmol/L (136-145) 09/19/23 09:35 Potassium 4.0 mmol/L (3.5-5.1) 09/19/23 09:35 Chloride 104 mmol/L (98-107) 09/19/23 09:35 Carbon Dioxide 24.8 mmol/L (21.0-32.0) 09/19/23 09:35 BUN 15 mg/dL (7-18) 09/19/23 09:35 Creatinine 0.9 mg/dL (0.55-1.02) 09/19/23 09:35 Est GFR (CKD-EPI 2020) 70.51 (mL/min/1.73m2) 09/19/23 09:35 Calcium 9.6 mg/dL (8.5-10.1) 09/19/23 09:35 Albumin 3.9 g/dL (3.4-5.0) 09/19/23 09:35 Glucose 106 mg/dL (74-106) 09/19/23 09:35 C-Reactive Protein < 0.05 mg/dL (0.0-0.3) 09/19/23 09:35 Liver Function Panel: Alanine Aminotransferase (ALT/SGPT) 25 U/L (14-59) 09/19/23 09:35 Aspartate Amino Transf (AST/SGOT) 20 U/L (15-37) 09/19/23 09:35 Coagulation Panel: No Data to Display Cardiac Panel: No Data to Display Arterial Blood Gas: No Data to Display Venous Blood Gas: No Data to Display Pancreas Panel: No Data to Display Thyroid Panel: Thyroid Stimulating Hormone (TSH) 1.75 uIU/mL (0.36-3.74) 09/25/23 15:19 Infectious Disease: No Data to Display Blood Cultures: No Data to Display Toxicology Panel: No Data to Display Imaging and Studies Imaging and Studies Study information below may be from another EMR and interpreted by another provider. Please see original notes in EMR for more complete details. Stress Test Summary: 02/26: neg stress. Echocardiogram Summary: 01/26: LVEF 60-65%, no WMA. Carotid Artery Summary:: 01/26: no hemodynamically sig stenosis. Anesthesia Assessment and Plan Anesthesia History Personal History: No History of Anesthesia Complications Family History: No Family History of Anesthesia Complications Exercise Tolerance Exercise Tolerance: Metabolic Equivalents>4 Pertinent Negatives Pertinent Negatives: No Symptoms of GERD, No Major Cardiovascular Symptoms or Complaints, No Major Pulmonary Symptoms or Complaints and No History of CVA/TIA Cardiac & Pulmonary Exam Cardiac Exam: Normal S1/S2 Heart Sounds Pulmonary Exam: Clear Bilateral Breath Sounds Implantable Cardiac Device Does patient have a Pacemaker or an ICD?: No Airway Exam Known Difficult Airway: No Mallampati Class: 1 Mouth Opening: Normal (> 3cm) Thyromental Distance: Greater than 3 cm Neck Range of Motion: Full ROM Neck Circumference: Normal Teeth Condition: Normal Dentition ASA Classification ASA Score: ASA 2 Emergency Case?: No NPO Status NPO Status: NPO Clears >2 hours, Solids >8 hours Anesthesia Plan Resuscitation Status: Full Code Anesthesia Technique: General Anesthesia Airway Planned: Natural Airway Monitors Used: Standard Monitors Preoperative Comments:: 67 yo female for colo. Sig PMHx: HTN, GERD, depression. s/p ex lap. never smoker, occ EtOH Previous Anes: - colo, prop, natural airway, no issues.
[2023-09-29 11:18] VITALS: BP 132/95; PULSE 86; RESP 20; TEMP 36.6; O2SAT 98
[2023-09-29] MEDS: Lactated Ringers 1,000 ML 80 ML IV (11:42)
--- NOTE | 2023-09-29 12:24 | BOWEL_PTH ---
PATIENT: Asha Starr LOC: [facility] U#:[id number] AGE/SX: 67/F ROOM: RE09/29/[address]: Darrion Harris MD : [id number] BED: DIS: 09/29/2023 SPEC #: [id number] RECD: 09/29/23 13:29 STATUS: MAMIE RE #: [id number] EMMANUEL: 09/29/23 12:[address]: Darrion Harris DEPT: Surgical Specimen RECD BY: Beti Ruiz ENTERED: 09/29/23 13:29 SP TYPE: Bowel OTHR DR: Valentina Lloyd MD, DC Tissues: 1 - BIOPSY BOWEL Procedures: GROSS AND MICRO LEVEL 4 Comments: [id number]
[2023-09-29 12:55] VITALS: BP 116/81; PULSE 81; RESP 16; TEMP 36.7; O2SAT 97
[2023-09-29 13:07] VITALS: BMI 25.3
--- NOTE | 2023-09-29 13:07 | W.ANESPOSTOP ---
Postoperative Evaluation Date, Time and Location Date Performed: 09/29/23 Time Performed: 13:07 Patient Location: Day Surgery Unit Vital Signs Most Recent Imported Vital Signs: Most Recent Vital Signs Temp Pulse Resp BP Pulse Ox 36.7 C 81 16 116/81 97 09/29/23 12:55 09/29/23 12:55 09/29/23 12:55 09/29/23 12:55 09/29/23 12:55 Pain Score Most Recent Pain Score: Most Recent Pain Score Pain Level 0 09/29/23 12:55 Assessment Mental Status: Awake (Alert & Oriented to Patient Baseline) Airway and Respiratory Function: Patent airway with normal (patient baseline) respiratory exam Cardiovascular Function: Hemodynamically Stable Hydration Status: Adequately Hydrated Nausea & Vomiting: No Nausea or Vomiting Pain: Pt. Denies Any Pain Peripheral Nerve Block: Patient did not receive a nerve block
[2023-09-29 13:26] VITALS: BP 118/86; PULSE 66; RESP 16; TEMP 36.6; O2SAT 97
== END 2023-09-29 13:58 | disposition home or self-care (01) ==
LOC: SUR 11:14
PROVIDERS: PCP Family Medicine; Visit Provider Surgery
PROC: 0DJD8ZZ Inspection of Lower Intestinal Tract, Via Natural or Artificial Opening Endoscopic (ICD-10-PCS; CPT 45378; principal; 2023-09-29 12:45)
DX: Z12.11 Encounter for screening for malignant neoplasm of colon (principal); D37.5 Neoplasm of uncertain behavior of rectum; Z80.0 Family history of malignant neoplasm of digestive organs; I10 Essential (primary) hypertension
CPT/HCPCS: 45380; 88305

== ENCOUNTER 2023-10-16 03:13 | Outpatient (RCR) | payer MEDICARE, SELFPAY ==
[2023-10-16] MEDS: Denosumab 60 MG/ML SYR SC (12:08)
== END 2023-11-09 23:59 | disposition home or self-care (01) ==
LOC: INF 03:13
PROVIDERS: PCP Family Medicine; Visit Provider Family Medicine
DX: M81.0 Age-related osteoporosis without current pathological fracture (principal)
CPT/HCPCS: 96372; J0897

== ENCOUNTER 2023-11-06 00:46 | Outpatient (CLI) | payer MEDICARE, SELFPAY ==
[2023-11-11 16:36] LABS: Apolipoprotein B, Serum 69 mg/dL (48-124); Beta VLDL Cholesterol Not Detected mg/dL (<15); Beta VLDL Triglycerides Not Detected mg/dL (<15); Cholesterol, Total, CDC 183 mg/dL; Chylomicron Cholesterol Not Detected; Chylomicron Triglycerides Not Detected; HDL Cholesterol, CDC 74 mg/dL (>=50); Interpretation Normal; LDL Cholesterol 98 mg/dL; LDL Triglycerides 24 mg/dL (<=50); Lp(a) Cholesterol <5 mg/dL (<5); LpX Not detected; Triglycerides, CDC 62 mg/dL; VLDL Cholesterol 11 mg/dL (<30); VLDL Triglycerides 21 mg/dL (<120)
== END 2023-11-06 00:47 | disposition home or self-care (01) ==
LOC: LOS 00:46
PROVIDERS: PCP Family Medicine; Visit Provider Family Medicine
DX: E78.00 Pure hypercholesterolemia, unspecified (principal)
CPT/HCPCS: 36415; 80061; 82172; 82664

== ENCOUNTER 2024-04-21 00:59 | Outpatient (RCR) | payer MEDICARE, SELFPAY ==
[2024-04-21] MEDS: Denosumab 60 MG/ML SYR SC (12:08)
== END 2024-05-09 23:59 | disposition home or self-care (01) ==
LOC: INF 00:59
PROVIDERS: PCP Family Medicine; Visit Provider Family Medicine
DX: M81.0 Age-related osteoporosis without current pathological fracture (principal)
CPT/HCPCS: 96372; J0897

== ENCOUNTER → 2024-04-28 01:26 | Outpatient (CLI) | payer MEDICARE, SELFPAY ==
--- NOTE | 2024-04-28 07:45 | DI.US_ITS ---
Exam(s) US ABDOMEN EXAM: US ABDOMEN CLINICAL HISTORY: epigastric pain, ABD PAIN, R10.9 TECHNIQUE: Ultrasound abdomen performed using standard protocol. COMPARISON: No exams were available for comparison FINDINGS: LIVER: Normal size and echogenicity. No focal liver lesions are seen. GALLBLADDER: No evidence of cholelithiasis. No evidence of wall thickening. No pericholecystic fluid identified. SCHOFIELD'S SIGN: Negative. BILIARY SYSTEM: No intrahepatic or extrahepatic biliary ductal dilation. KIDNEYS: Kidneys are symmetric in size. No evidence of renal calculi. No evidence of hydronephrosis. No renal mass or cyst identified. PANCREAS: Normal where visualized. SPLEEN: Not enlarged. ABDOMINAL AORTA AND IVC: Visualized portions normal caliber. ASCITES: None seen. IMPRESSION: Normal sonographic appearance of the upper abdomen. DATA REPOSITORY:
== END ==
PROVIDERS: PCP Family Medicine; Visit Provider Family Medicine
DX: R10.13 Epigastric pain (principal); R10.10 Upper abdominal pain, unspecified
CPT/HCPCS: 76700

== ENCOUNTER 2024-05-03 06:35 | Outpatient (REF) | payer MEDICARE, SELFPAY ==
[2024-05-03 22:44] LABS: Campylobacter PCR Negative (Negative); Salmonella PCR Negative (Negative); Shiga Toxin PCR Negative (Negative); Shigella/Enteroinvasive Ecoli Negative (Negative)
== END 2024-05-03 06:36 | disposition home or self-care (01) ==
LOC: LBN 06:35
PROVIDERS: PCP Family Medicine; Visit Provider Family Medicine
DX: R19.7 Diarrhea, unspecified (principal)
CPT/HCPCS: 87329; 87505

== ENCOUNTER 2024-07-26 04:48 | Outpatient (CLI) | payer MEDICARE, SELFPAY ==
[2024-07-26 12:22] LABS: Abs Immature Grans 0.01 10^3/uL (0.0-0.06); Absolute Basophil Count 0.03 10^3/uL (0.0-0.2); Absolute Eosinophil Count 0.09 10^3/uL (0.0-0.7); Absolute Lymphocyte Count 1.41 10^3/uL (1.2-3.4); Absolute Monocyte Count 0.32 10^3/uL (0.1-0.8); Basophils % 0.8 %; Eosinophils % 2.3 %; HCT 42.9 % (36.0-46.0); HGB 13.9 g/dL (11.2-15.7); Immature Grans % 0.3 %; Lymphocytes % 35.5 %; MCH 29.2 pg (27.0-33.0); MCHC 32.4 % (32.0-36.0); MCV 90 fL (80-95); MPV 9.3 fL (8.0-11.0); Monocytes % 8.1 %; Platelet Count 222 10^3/uL (130-400); RBC 4.76 10^6/uL (3.93-5.22); WBC 3.97 10^3/uL (4.4-10.8)
[2024-07-26 12:25] LABS: Bilirubin Negative (Negative); Blood Negative (Negative); Clarity Clear (Clear); Glucose Negative (Negative); Ketones Negative (Negative); Leukocyte Esterase Negative (Negative); Nitrite Negative (Negative); Specific Gravity <= 1.005 (1.005-1.025); Urobilinogen 0.2 mg/dL (Up to 0.2)
[2024-07-26 12:35] LABS: ALT 23 U/L (14-59); AST 22 U/L (15-37); Alkaline Phosphatase 98 U/L (46-116); BUN 18 mg/dL (7-18); Calcium 9.3 mg/dL (8.5-10.1); Chloride 105 mmol/L (98-107); Estimated GFR 61.75 (mL/min/1.73m2); Glucose 96 mg/dL (74-106); Potassium 3.8 mmol/L (3.5-5.1); Sodium 139 mmol/L (136-145); Total Protein 7.3 g/dL (6.4-8.2)
[2024-07-27 11:32] LABS: IgA 129 mg/dL (85-499); Interpretation (See Note); Tissue Transglutaminase IgA <4.0 CU (<20.0)
== END 2024-07-26 04:49 | disposition home or self-care (01) ==
LOC: LOS 04:48
PROVIDERS: PCP Family Medicine; Visit Provider Family Medicine
DX: R19.7 Diarrhea, unspecified (principal); I10 Essential (primary) hypertension
CPT/HCPCS: 36415; 80053; 82784; 83516; 81003; 85025

== ENCOUNTER 2024-07-27 19:41 | Outpatient (REF) | payer MEDICARE, SELFPAY ==
[2024-07-30 14:57] LABS: Helicobacter pylori Ag, Feces Positive (Negative)
== END 2024-07-27 19:42 | disposition home or self-care (01) ==
LOC: LBN 19:41
PROVIDERS: PCP Family Medicine; Visit Provider Family Medicine
DX: R19.7 Diarrhea, unspecified (principal)
CPT/HCPCS: 87338

== ENCOUNTER 2024-09-21 15:28 | Outpatient (REF) | payer MEDICARE, SELFPAY | END 2024-09-21 15:29 | disposition home or self-care (01) | LOC: LBN 15:28 | PROVIDERS: PCP Family Medicine; Visit Provider Family Medicine | DX: N76.0 Acute vaginitis (principal) | CPT/HCPCS: 87480; 87510; 87660 ==

== ENCOUNTER → 2024-09-23 13:17 | Outpatient (BNVA) | payer MEDICARE, SELFPAY | PROVIDERS: PCP Family Medicine; Referring Provider Family Medicine; Visit Provider Surgery | DX: K52.9 Noninfective gastroenteritis and colitis, unspecified (principal); R10.13 Epigastric pain | CPT/HCPCS: 99214 ==

== ENCOUNTER 2024-09-24 09:38 | Outpatient (REF) | payer MEDICARE, SELFPAY ==
[2024-09-27 22:59] LABS: Pancreatic Elastase, F >500 mcg/g
[2024-09-28 17:21] LABS: Calprotectin <50.0 mcg/g
== END 2024-09-24 09:39 | disposition home or self-care (01) ==
LOC: LBN 09:38
PROVIDERS: PCP Family Medicine; Visit Provider Surgery
DX: K52.9 Noninfective gastroenteritis and colitis, unspecified (principal); R10.9 Unspecified abdominal pain
CPT/HCPCS: 82656; 83630; 83993

== ENCOUNTER 2024-10-06 00:41 | Outpatient (CLI) | payer MEDICARE, SELFPAY ==
--- NOTE | 2024-10-06 06:45 | DI.NM_ITS ---
Exam(s) NM HEPATOBILIARY CCK GRP EXAM: NM HEPATOBILIARY CCK GRP CLINICAL HISTORY: CHRONIC DIARRHEA, ABD PAIN, K52.9, R10.9. TECHNIQUE: Injected dose: 5 mCi Tc-99 mebrofenin Initial dynamic images: 60 minutes Post-Gallbladder fillin.0 mcg CCK according to protocol. Addition images: According to protocol. COMPARISON: US US ABDOMEN from 04/28/2024 FINDINGS: Normal hepatic transit time. Prompt excretion into the small bowel. Excretion from the gallbladder was facilitated by these of CCK. The gallbladder ejection fraction is 35 percent. (Normal: 40 percent). IMPRESSION: 1. Gallbladder ejection fraction is 35 percent. This is below normal. This can be seen with gallbladd er dysfunction. SN guidelines: Gallbladder visualization should be present by 3 hours. Delayed ipaagst-pu-yhsxe gomez sit beyond 60 min raises the suspicion for partial common bile duct (CBD) obstruction. Gallbladder ejection fraction <35% has a good correlation with acalculous disease (i.e., chronic acal culous cholecystitis, cystic duct syndrome, sphincter of Oddi disease).
[2024-10-06] MEDS: Sincalide 5 MCG VIAL 1 MCG IJ (10:21)
== END 2024-10-06 01:01 ==
LOC: DI 00:41
PROVIDERS: PCP Family Medicine; Visit Provider Surgery
DX: K52.9 Noninfective gastroenteritis and colitis, unspecified (principal); R10.9 Unspecified abdominal pain
CPT/HCPCS: 78227; J2805

== ENCOUNTER 2024-10-14 09:50 | Outpatient (CLI) | payer MEDICARE, SELFPAY ==
[2024-10-14 10:04] LABS: ALT 32 U/L (14-59); AST 27 U/L (15-37); Albumin 3.9 g/dL (3.4-5.0); Alkaline Phosphatase 120 U/L (46-116); Anion Gap 7.1 mmol/L (3-11); BUN 15 mg/dL (7-18); Bilirubin, Total 0.78 mg/dL (0.2-1.0); CO2 28.9 mmol/L (21.0-32.0); Calcium 9.3 mg/dL (8.5-10.1); Calculated LDL 179 mg/dL (<100); Chloride 106 mmol/L (98-107); Cholesterol 274 mg/dL (<200); Estimated GFR 61.36 (mL/min/1.73m2); Glucose 97 mg/dL (74-106); HDL Cholesterol 83 mg/dL (40-60); Potassium 4.1 mmol/L (3.5-5.1); Sodium 142 mmol/L (136-145); Total Protein 7.4 g/dL (6.4-8.2); Triglyceride 63 mg/dL (<150)
== END 2024-10-14 09:51 | disposition home or self-care (01) ==
LOC: LBO 09:50
PROVIDERS: PCP Family Medicine; Visit Provider Family Medicine
DX: I10 Essential (primary) hypertension (principal); Z11.59 Encounter for screening for other viral diseases
CPT/HCPCS: 36415; 80053; 80061

== ENCOUNTER 2024-10-22 07:07 | Day surgery (SDC) | payer MEDICARE, SELFPAY ==
--- NOTE | 2024-10-21 20:57 | ENDO_ITS ---
Date of service: 10/22/24 Time of Service: 09:26 Endoscopy Report DATE OF PROCEDURE: 10/22/24 PRE-OP DIAGNOSIS: epigastric pain/bloating/nasuea POST-OP DIAGNOSIS: same SURGEON: Tayler Tucker ANESTHESIA TYPE: General:No Airway ESTIMATED BLOOD LOSS: 2 PATHOLOGY: other COMPLICATIONS: None DISPOSITION: same day PROCEDURE DESCRIPTION: Informed consent was obtained from the pt; explaining the benefits and Risks: bleeding, infections, perforations {which could require surgery or antibiotics and prolonged hospital stay}, or ostomy, and complications of anaesthesia, celeste aspiration). The patient was take to the procedure room and placed in a supine position. Monitors were applied and a time out was done. The patients name, date of , procedure type, allergies to medications and metal in their body was reviewed. A bite block was placed and the patient was sedated. Once sedated and comfortable an Olympus gastroscope (see RN notes for scope #) was advanced through the oropharynx which was grossly normal, and passed into the esophagus. The proximal and mid-esophagus were normal. The distal esophagus does not show any: dilation/strictures/varices/erosions or ulcers/bleeding noted. The scope was advanced into the stomach and through the pylorus into the proximal jejunum. A bx is taken for celiac Dx . The duodenum was noted to be normal. Biopsies were done of the duodenal bulb.. The scope was retracted back into the stomach and biopsies were taken of the antrum. There were no gastritis/gastropathy/ ulcers/masses noted. The scope was retroflexed. The cardia and fundus were noted to be normal. There is no hiatal hernia noted. The scope was retracted back into the esophagus and biopsies were done of the GE junction (in all 4 quadrants) and distal esophagus (2cm above the GE junction) to rule out Singletary's. All specimens are retrieved and no bleeding was noted. The Z line was regular. The GE junction was at 38 cm. The scope was removed and the patient was woken up and taken back to [facility] in stable condition.
--- NOTE | 2024-10-21 20:58 | PDOC.DSDIS_ITS ---
Date of service: 10/22/24 Discharge Plan Disposition Patient Disposition: Home Condition: Good Discharge Details Reason For Visit: egd Attending Provider: Tayler Tucker Primary Care Provider: Valentina Lloyd Home Meds and New Rx's Prescriptions: No Action meloxicam 7.5 mg tablet 7.5 mg PO DAILY PRN (Reason: Arthritis) diclofenac sodium [Voltaren Arthritis Pain] 1 % gel 2 g topical QID PRN Rx Instructions: apply to single elbow, wrist or hand; for hand includes palm/fingers/back of hand atorvastatin 10 mg tablet 10 mg PO .three times weekly Qty: 36 4RF losartan 50 mg tablet 50 mg PO DAILY Qty: 90 4RF calcium carbonate-vitamin D3 600 mg-25 mcg (1,000 unit) capsule 1 cap PO DAILY lorazepam 1 mg tablet 1 mg PO DAILY PRN (Reason: panic attack(s)) Qty: 5 0RF Fish Oil 100-160-1,000 mg capsule 1 cap PO DAILY turmeric root extract 500 mg capsule 1,000 mg PO .every other day triamcinolone acetonide 0.1 % ointment 1 applic Topical DAILY PRN (Reason: rash) Qty: 80 2RF bupropion HCl [Wellbutrin SR] 150 mg tablet sustained-release 12 hr 150 mg PO DAILY Qty: 90 4RF estradiol [Yuvafem] 10 mcg tablet 10 mcg VG .COMPLEX Qty: 108 4RF Rx Instructions: 10 mcg VG 3 times weekly; dispense compounded estradiol metoprolol succinate 25 mg tablet extended release 24 hr 25 mg PO DAILY Qty: 90 4RF nitroglycerin [Nitrostat] 0.4 mg tablet, sublingual 0.4 mg SL Q5M MDD 3 doses PRN (Reason: chest pain) Qty: 30 0RF Rx Instructions: until response; do not exceed 3 doses per episode Discharge Instructions Additional Instructions: Post EGD Instruction ?You had anesthesia for your EGD/stomach scope today.? For your safety, please do the following for the next twenty-four (24) hours: Do Not operate a motor vehicle (car, truck, motorcycle, etc.) Do Not drink alcoholic beverages or use any recreational drugs for the first 24 hours or while taking pain medications. The medications in your body may have a reaction that can be dangerous. Do Not make any important decisions or sign any important papers You have just had a gastroscopy (EGD) or upper GI tract examination. It is important for your smooth recovery that you carefully follow the recommendations below. Do not hesitate to call if any questions should arise about your anesthesia, condition, or care. -Symptoms you may experience during the next 24 hours: ?1. Mild abdominal pain or excessive gas or a bloated feeling which improves with rest, liquids, eating? slightly, and walking as tolerated. 2. Drowsiness and/or forgetfulness because of the medications you were given. 3. A sore throat which you can treat with throat lozenges or by gargling with salt water 4-5 times a day. 4. Redness at the site of your IV which you can treat with warm compresses. SPECIAL INSTRUCTIONS: 1. You may resume your previous diet in one hour. We recommend a light meal to start, then progress as tolerated. 2. Restart regular medications in one hour. 3. No aspirin or non-steroidal containing medication for 24 hrs. 4. No lifting over 20 pounds or strenuous activity for the first 24 hours after your procedure. After 24 hours there are no restrictions on your activity, but you may feel fatigued for a few days. -Findings: normal -Medications: No stomach medications. Continue all current medications. -Continue to follow lifestyle modifications: No alcohol, tobacco products, Aspirin or NSAID's (ibuprofen, Motrin, Naprosyn, aleve, etc).? Try to limit/avoid:? soda pop/any carbonated beverages, caffeine (including tea & chocolate), and acidic foods, (tomatoes, citrus, onions, peppermints) spicy or fried/fatty foods. Do not lie down for 30 minutes after eating, and do not eat 2 hours prior to bedtime. Avoid wearing tight fitting clothing/ belts. Follow up: Follow-up in clinic on Friday as previously scheduled -My office will send a letter with the results of your biopsy?s in 2-3wks time. Call the office at [phone] (Office) or [phone] (Hospital), or go to the ER right away if you notice any of the followin. Vomiting blood and /or ?coffee ground? material. ?2. Worsening of abdominal pain or cramping. ?3. Trouble with breathing, cough, and/or fever (temperature above 101.5 F). 4. Increasing pain with swallowing. ?5. Chest pain. 6. Any new symptoms. 7. Worsening of the redness at the IV site Activity:: see above Diet:: see above Discharge Orders Discharge Orders: Discharge Order (Routine); Ordered 10/22/24 Ordered By: Tayler Tucker DS: Diagnosis Discharge Diagnosis (1) Gastroesophageal reflux disease: Status: Chronic Asessment and Plan: Patient is seen and examined after they are endoscopy.? Patient has minimal sore throat.? They have been able to tolerate liquids.? They do not have any nausea vomiting.? They are not having any chest pain or shortness of breath.? They have been able to pass gas and are not having any abdominal pain or distention.? They have not vomited any blood.? The vital signs have been stable-see nursing notes. We discussed findings on their endoscopy. We reviewed the importance of lifestyle modification-see discharge instructions We reviewed any new medications that the patient may be prescribed-see discharge instructions Patient will either be sent a letter with the biopsy results or follow-up in the office-see discharge instructions. Patient was given explicit instructions to follow-up regarding post endoscopy- refer to discharge Patient verbalized understanding and discharged in stable and satisfactory condition.? See nursing notes. (2) H. pylori duodenitis: Status: Acute (3) Chronic diarrhea: Status: Acute (4) Elevated alkaline phosphatase level: Status: Acute
[2024-10-22 07:36] VITALS: BP 127/98; PULSE 86; RESP 18; TEMP 36.4; O2SAT 94
--- NOTE | 2024-10-22 08:22 | ANES.PREOP_ITS ---
General Info Date of Service Date Performed: 10/22/24 Height: 5 ft 6 in Weight: 71 kg Body Mass Index (BMI): 25.2 Surgical Procedure: Operation Date: 10/22/24 08:20 Proposed Procedure Side Surgeon p Gastroscopy Tayler Tucker, Meds Allergies and Home Medications Allergies Allergy/AdvReac Type Severity Reaction Status Date / Time Sulfa (Sulfonamide Allergy Intermediate Skin Rash Verified 10/22/24 07:29 Antibiotics) alendronate sodium Allergy Unknown Inflammation Verified 10/22/24 07:29 of esophagus latex Allergy Unknown Skin Rash Verified 10/22/24 07:29 risedronate sodium Allergy Unknown inflammation Verified 10/22/24 07:29 of esophagus Home Medication ?Medication ?Instructions ?Recorded nitroglycerin 0.4 mg sublingual 0.4 mg sublingual Q5M PRN chest 01/22/19 tablet (Nitrostat) pain #30 tabs triamcinolone acetonide 0.1 % 1 applic topical DAILY PRN rash 01/29/21 topical ointment #80 grams omega 3-vva-xcr-fish oil 100 1 cap PO DAILY 09/24/23 mg-160 mg-1,000 mg capsule (Fish Oil) bupropion HCl 150 mg tablet,12 hr 150 mg PO DAILY #90 tabs 01/23/24 sustained-release (Wellbutrin SR) estradiol 10 mcg vaginal tablet 10 mcg vaginal .COMPLEX #108 tabs 04/12/24 (Yuvafem) metoprolol succinate 25 mg 25 mg PO DAILY #90 tabs 04/12/24 tablet,extended release 24 hr atorvastatin 10 mg tablet 10 mg PO .three times weekly #36 04/20/24 tabs diclofenac sodium 1 % topical gel 2 g topical QID PRN 04/20/24 (Voltaren Arthritis Pain) losartan 50 mg tablet 50 mg PO DAILY #90 tabs 04/20/24 meloxicam 7.5 mg tablet 7.5 mg PO DAILY PRN Arthritis 04/20/24 calcium 600 mg (as 1 cap PO DAILY 10/18/24 carbonate)-vitamin D3 25 mcg (1,000 unit) capsule lorazepam 1 mg tablet 1 mg PO DAILY PRN panic attack(s) 10/18/24 #5 tabs turmeric root extract 500 mg 1,000 mg PO .every other day 10/18/24 capsule Current Visit Medications: Current Medications Generic Name Dose Route Start Last Admin Trade Name Freq PRN Reason Stop Dose Admin Ringer's Solution 1,000 mls @ 80 mls/hr 10/22/24 06:00 IV 10/22/24 23:59 [facility] IV Miscellaneous Supplies 1 each 10/22/24 06:00 Iv Access IV 10/22/24 23:59 DIRECTED WARREN Ondansetron HCl 4 mg 10/22/24 08:53 Ondansetron 4 Mg/2 Ml Vial IVP 11/21/24 08:52 Q4H PRN PRN Nausea / Vomiting Sodium Chloride 0 ml 10/22/24 06:00 Normal Saline Flush 10 Ml Syr IV 10/22/24 23:59 PRN PRN Sodium Chloride 0 ml 10/22/24 06:00 Normal Saline 10 Ml Vial IJ 10/22/24 23:59 DIRECTED PRN Sterile Water 0 ml 10/22/24 06:00 Water,Injection,Sterile 10 Ml Vial IJ 10/22/24 23:59 DIRECTED PRN PFSH Active Problems Active Problems: Problem Status Onset Code Encounter for hepatitis C screening test for low risk patient Acute Z11.59 Chronic diarrhea of unknown origin Acute K52.9 Chronic diarrhea Acute K52.9 H. 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 Hypercholesterolemia Acute E78.00 Screen for colon cancer Acute Z12.11 Elevated alkaline phosphatase level Acute R74.8 Arthralgia Acute M25.50 Pain in right finger(s) Acute M79.644 Family history of colon cancer Acute Z80.0 DUB (dysfunctional uterine bleeding) Acute N93.8 COVID-19 Acute U07.1 Hypertension Chronic I10 Vaccine counseling Acute Z71.89 Encounter for administration of vaccine Acute Z23 Neuralgia Acute M79.2 Right hip pain Acute M25.551 Shoulder pain, left Acute M25.512 Annual physical exam Acute Z00.00 Tachycardia Acute R00.0 Vitreous detachment Chronic 08/08/14 H43.819 Osteoporosis Chronic M81.0 Gastroesophageal reflux disease Chronic K21.9 Diverticular disease Chronic 08/19/13 K57.90 Depressive disorder Chronic F32.9 Chronic pain of toe Chronic 04/30/18 M79.676, G89.29 Cataract Chronic 04/22/16 H26.9 Atrophic vaginitis Chronic N95.2 Medical History Medical History Retinal detachment Bacterial vaginosis (06/20/15) Carpal tunnel syndrome Chronic left shoulder pain (07/31/17) Female infertility Cellulitis Chest pain, rule out acute myocardial infarction Carpal tunnel syndrome EMG 09/15=neg bilaterally Female infertility Cerumen impaction 06/12/15 Bacterial vaginitis 06/20/15 Finger pain, left 07/29/17 Chronic left shoulder pain 07/31/17 Tachycardia (10/27/17) Shoulder pain (10/09/00) biceptal groove CA++; MRI 11/2206-partial thickness supra tear. Left DJD Hand numbness (04/30/18) Elevated blood pressure reading (09/15/17) Elevated BP without diagnosis of hypertension Annual physical exam (06/12/15) Surgical History Surgical History Status post carpal tunnel release S/P laparotomy 11/10/87 exploratory S/P carpal tunnel release 11/10/05 bilateral Colonoscopy planned (~09/2023) Dr Barron: Family Hx colon cancer S/P colonoscopy (~09/21/18) History of Mohs surgery for squamous cell carcinoma in situ of skin 05/2018 (FACE) PROCEDURES EXPLORATORY LAPAROTOMY, 1987 [facility] [place] Open Carpal Tunnel release B/L 2006-Pt. denies stated she never had this done Extraction of cataract Tobacco Smoking/Tobacco Use Status: Never Passive smoking exposure: Yes Alcohol Alcohol Intake: current Alcohol intake frequency: holidays/special occasions only Alcohol type: wine Substance Use Substance use: Never Substance use type: does not use Vital Signs and Lab Results Vital Signs Most Recent Vital Signs in EMR: Most Recent Vital Signs Temp Pulse Resp BP Pulse Ox 36.4 C L 86 18 127/98 H 94 10/22/24 07:36 10/22/24 07:36 10/22/24 07:36 10/22/24 07:36 10/22/24 07:36 Lab Results Blood Type / Crossmatch: No Data to Display Complete Blood Count: No Data to Display Complete Metabolic Panel: Sodium 142 mmol/L (136-145) 10/14/24 09:23 Potassium 4.1 mmol/L (3.5-5.1) 10/14/24 09:23 Chloride 106 mmol/L (98-107) 10/14/24 09:23 Carbon Dioxide 28.9 mmol/L (21.0-32.0) 10/14/24 09:23 BUN 15 mg/dL (7-18) 10/14/24 09:23 Creatinine 1.0 mg/dL (0.55-1.02) 10/14/24 09:23 Est GFR (CKD-EPI 2020) 61.36 (mL/min/1.73m2) 10/14/24 09:23 Calcium 9.3 mg/dL (8.5-10.1) 10/14/24 09:23 Albumin 3.9 g/dL (3.4-5.0) 10/14/24 09:23 Glucose 97 mg/dL (74-106) 10/14/24 09:23 Liver Function Panel: Alanine Aminotransferase (ALT/SGPT) 32 U/L (14-59) 10/14/24 09: 23 Aspartate Amino Transf (AST/SGOT) 27 U/L (15-37) 10/14/24 09:23 Coagulation Panel: No Data to Display Cardiac Panel: No Data to Display Arterial Blood Gas: No Data to Display Venous Blood Gas: No Data to Display Pancreas Panel: No Data to Display Thyroid Panel: No Data to Display Infectious Disease: No Data to Display Blood Cultures: No Data to Display Toxicology Panel: No Data to Display Imaging and Studies Imaging and Studies Study information below may be from another EMR and interpreted by another provider. Please see original notes in EMR for more complete details. Stress Test Summary: 02/26: neg stress. Echocardiogram Summary: 01/26: LVEF 60-65%, no WMA. Carotid Artery Summary:: 01/26: no hemodynamically sig stenosis. Anesthesia Assessment and Plan Anesthesia History Personal History: No History of Anesthesia Complications Family History: No Family History of Anesthesia Complications Exercise Tolerance Exercise Tolerance: Metabolic Equivalents>4 Pertinent Negatives Pertinent Negatives: No Major Cardiovascular Symptoms or Complaints and No Major Pulmonary Symptoms or Complaints Cardiac & Pulmonary Exam Cardiac Exam: Normal S1/S2 Heart Sounds Pulmonary Exam: Clear Bilateral Breath Sounds Implantable Cardiac Device Does patient have a Pacemaker or an ICD?: No Airway Exam Known Difficult Airway: No Mallampati Class: 1 Mouth Opening: Normal (> 3cm) Thyromental Distance: Greater than 3 cm Neck Range of Motion: Full ROM Neck Circumference: Normal Teeth Condition: Normal Dentition ASA Classification ASA Score: ASA 2 Emergency Case?: No NPO Status NPO Status: NPO Clears >2 hours, Solids >8 hours Anesthesia Plan Resuscitation Status: Full Code Anesthesia Technique: General Anesthesia Airway Planned: Natural Airway Monitors Used: Standard Monitors Preoperative Comments:: Patient is also scheduled for gallbladder surgery this coming Friday.
[2024-10-22 08:23] VITALS: BMI 25.2
--- NOTE | 2024-10-22 08:43 | STOM_PTH ---
PATIENT: Asha Starr LOC: [facility] U#:[id number] AGE/SX: 69/F ROOM: RE10/22/[address]: Tayler Tucker : 1955 BED: DIS: 10/22/2024 SPEC #: [id number] RECD: 10/22/24 13:01 STATUS: MAMIE BAUTISTA #: [id number] EMMANUEL: 10/22/24 08:[address]: Tayler Tucker DEPT: Surgical Specimen RECD BY: Beti Ruiz ENTERED: 10/22/24 13:04 SP TYPE: STOMACH OTHR DR: Valentina Lloyd MD, DC Tissues: 1 - BIOPSY BOWEL 2 - BIOPSY BOWEL 3 - STOMACH BIOPSY 4 - STOMACH BIOPSY 5 - ESOPHAGUS BIOPSY 6 - ESOPHAGUS BIOPSY Procedures: GROSS AND MICRO LEVEL 4 Comments: [id number]
[2024-10-22 09:01] VITALS: BP 106/71; PULSE 86; RESP 16; TEMP 36.1; O2SAT 96
[2024-10-22 09:23] VITALS: BP 120/77; PULSE 76; RESP 18; TEMP 36; O2SAT 96
--- NOTE | 2024-10-22 09:56 | W.ANESPOSTOP ---
Postoperative Evaluation Date, Time and Location Date Performed: 10/22/24 Time Performed: 09:57 Patient Location: Day Surgery Unit Vital Signs Most Recent Imported Vital Signs: Most Recent Vital Signs Temp Pulse Resp BP Pulse Ox 36 C L 76 18 120/77 96 10/22/24 09:23 10/22/24 09:23 10/22/24 09:23 10/22/24 09:23 10/22/24 09:23 Pain Score Most Recent Pain Score: Most Recent Pain Score Pain Level 0 10/22/24 09:23 Assessment Mental Status: Awake (Alert & Oriented to Patient Baseline) Airway and Respiratory Function: Patent airway with normal (patient baseline) respiratory exam Cardiovascular Function: Hemodynamically Stable Hydration Status: Adequately Hydrated Nausea & Vomiting: No Nausea or Vomiting Pain: Pt. Denies Any Pain Peripheral Nerve Block: Patient did not receive a nerve block
== END 2024-10-22 09:58 | disposition home or self-care (01) ==
LOC: SUR 07:07
PROVIDERS: PCP Family Medicine; Visit Provider Surgery
PROC: 0DJ68ZZ Inspection of Stomach, Via Natural or Artificial Opening Endoscopic (ICD-10-PCS; CPT 43235; principal; 2024-10-22 08:15)
DX: K21.9 Gastro-esophageal reflux disease without esophagitis (principal); K29.80 Duodenitis without bleeding; K52.9 Noninfective gastroenteritis and colitis, unspecified; R10.13 Epigastric pain; R11.0 Nausea; R14.0 Abdominal distension (gaseous)
CPT/HCPCS: 43239; 88305; J2003; J2704

== ENCOUNTER 2024-10-26 06:09 | Day surgery (SDC) | payer MEDICARE, SELFPAY ==
--- NOTE | 2024-10-25 21:21 | ROE_ITS ---
Operative Note Operative Note PRE-OP DIAGNOSIS: Biliary dyskinesia POST-OP DIAGNOSIS: same PROCEDURE: Laparoscopic cholecystectomy SURGEON: Tayler Stout FILLING SEPARATOR: Martha Carson ANESTHESIA TYPE: Local By Surgeon and General LMA/ETT Refer to Anesthesia Record PATHOLOGY: other COMPLICATIONS: None Patient was transported to: PACU Patient's condition: stable Procedure Description: The pt is seen at the request of there PCP regarding biliary dyskinesia.. The pt has failed outpt conservative medical measures and is here today for laparoscopic cholecystectomy. Informed consent was obtained, explaining risks and benefits of the procedure including but not limited to bleeding, infection, pneumonia, blood clots, possible damage to bowel, bladder, blood vessels, bile ducts, possible open procedure, complicati ons of general anesthesia and other unforetold complications. PROCEDURE: The patient agrees and is brought to the operative room suite and placed in supine position. Pt receives IV ICG preOp to aid w/ bile duct visualization.? Anesthesia was administered per the Department of Anesthesia. The patient did receive IV antibiotics. NG tube. The patient was prepped and draped in the usual sterile fashion using DuraPrep scrub solution. Pause for the cause was done. 20 mL of 1% buffered lidocaine was used for local anesthetization. Patient had a previous laparoscopy and a cutdown was done in the standard fashion. A 12 mm port is placed. The camera was inserted through the port and shows no damage to underlying structures. A 5 mm port was then placed in the epigastric position under direct visualization following creation of local field blocks as well as two 5 mm ports in the right upper quadrant. The camera was moved to one of the secondary ports so we could view the umbilical trocar site, and there is are no hernias or adhesions. The gallbladder fundus was grasped and retracted towards the right shoulder. Infundibulum was grasped and retracted laterally. The hepat-duodenal ligament is entered. The cystic duct and artery are dissected out and the most inferior portion of the gallbladder plate is removed from the liver and the critical view of safety was obtained after clearing away all fatty material. Endo Clips were placed across the duct and artery and these structures are divided. The remainder of the gallbladder was excised from the liver bed. The gallbladder was placed in a bag and brought out. Examination of the gallbladder shows indeed the cystic duct and artery to have been divided. The remainder of the abdomen was copiously irrigated with a liter of saline. All saline is removed. There is no bleeding or bile leakage from the liver bed or the clips sites. All ports and instruments are removed. SPonge and needle counts are correct. Pneumoperitoneum is evacuated and the port sites are monitored to make sure there is no bleeding at the time of desufflation. The umbilical port site is closed with 0 Vicryl in interrupted fashion. ?Port sites are irrigated and the skin is closed with 4-0 Monocryl in a running subcuticular fashion. Skin glue sterile dressings are applied. The patient tolerated the procedure well without complications, transferred to the recovery room in stable condition. TAYLER STOUT, Date of Procedure: 10/26/24
--- NOTE | 2024-10-25 21:22 | W.PM.DSUDISC ---
Date of service: 10/26/24 Discharge Plan Disposition Patient Disposition: Home Condition: Improving Discharge Details Reason For Visit: Gallbladder removal Attending Provider: Tayler Tucker Primary Care Provider: Valentina Lloyd Home Meds and New Rx's Prescriptions: New tramadol 50 mg Tablet 50 mg PO Q6H PRN PRN (Reason: Pain) Qty: 14 0RF ondansetron 4 mg tablet,disintegrating 4 mg PO Q6H PRNQty: 20 0RF Continued meloxicam 7.5 mg tablet 7.5 mg PO DAILY PRN (Reason: Arthritis) diclofenac sodium [Voltaren Arthritis Pain] 1 % gel 2 g topical QID PRN Rx Instructions: apply to single elbow, wrist or hand; for hand includes palm/fingers/back of hand atorvastatin 10 mg tablet 10 mg PO .three times weekly Qty: 36 4RF losartan 50 mg tablet 50 mg PO DAILY Qty: 90 4RF calcium carbonate-vitamin D3 600 mg-25 mcg (1,000 unit) capsule 1 cap PO DAILY turmeric root extract 500 mg capsule 1,000 mg PO .every other day triamcinolone acetonide 0.1 % ointment 1 applic Topical DAILY PRN (Reason: rash) Qty: 80 2RF bupropion HCl [Wellbutrin SR] 150 mg tablet sustained-release 12 hr 150 mg PO DAILY Qty: 90 4RF estradiol [Yuvafem] 10 mcg tablet 10 mcg VG .COMPLEX Qty: 108 4RF Rx Instructions: 10 mcg VG 3 times weekly; dispense compounded estradiol metoprolol succinate 25 mg tablet extended release 24 hr 25 mg PO DAILY Qty: 90 4RF lorazepam 1 mg tablet 1 mg PO DAILY PRN (Reason: panic attack(s)) Qty: 5 0RF nitroglycerin [Nitrostat] 0.4 mg tablet, sublingual 0.4 mg SL Q5M MDD 3 doses PRN (Reason: chest pain) Qty: 30 0RF Rx Instructions: until response; do not exceed 3 doses per episode Discharge Instructions Additional Instructions: Care after Gallbladder Surgery -Pain control: ?For the first 72 hours after surgery, take your pain meds continuously, and not just when you have pain.?? Alternate Tylenol 1000mg by mouth every 8 hours, and Ibuprofen 600mg every 6 hours.? Make sure you take ibuprofen with food and not on an empty stomach.? ??Use the tramadol for breakthrough pain- pain that is greater than a 7. ?- Use ICE! Ice really helps to keep the swelling down, and swelling causes pain. ??Twenty minutes on, and then off, continuously for the first 72hours.? After the first 72hrs, you can just use the Tylenol, ibuprofen or Celebrex, and ice, when you have pain.?? If you are taking narcotic pain medication, follow the instructions on the label and do not drive. Pain medications can make you very constipated. Make sure you are moving your bowels daily. If not, take Miralax. - Anesthesia makes you very constipated.? Take a dose of Miralax the morning after surgery. ? Use an ice bag for the first 72 hours. This helps to decrease swelling, which causes pain. It is normal to be more sore/painful and swollen towards the end of the day and first thing in the morning. ? Gallbladder surgery can make you very nauseated; use Zofran for nausea, for the first 24 hours. The nausea generally stops after 24 hours. ? Use Miralax or prune juice to prevent constipation (this is a particular side effect of pain medication and anesthesia). Do not allow yourself to become constipated. ? Avoid fatty or greasy foods; introduce these slowly, with care, after about 1 month. High-fat foods include: ? Foods that are fried, like [place] fries and potato chips ? High-fat meats, such as curiel, bologna, sausage, ground beef, and ribs, pork products ? High-fat dairy products, such as cheese, ice cream, cream, whole milk, and sour cream ? Pizza ? Foods made with lard or butter ? Creamy soups or sauces ? Meat gravies ? Chocolate ? Oils, such as palm and coconut oil ? Skin of chicken or turkey ? Nuts and nut butters ? Avocadoes ? Start out eating very small, bland amounts of food. Do not take pain pills on an empty stomach. - You will notice purple discoloration around the incisions.? This is the ?skin glue?.? This will wear off on its own.? It is OK to shower after 24hrs.? You do not need to cover the incisions. -You should walk frequently, gradually, increasing the distance. You may climb stairs, just go slowly. ? Do not go swimming or sit in a hot tub for two weeks. ? There are no stitches to remove. ? Do not drive your car x72hrs and then only if you have no pain and can move freely. Do not drive if you are taking pain narcotic pain medications. ? You may resume sexual activity whenever pain and soreness subside, usually in 2 weeks. ? Do no lift anything over 5 lbs. for two weeks. ? You may return to work in one week, or when you feel able, provided you do not have to do any heavy lifting or prolonged standing. ? You should return to Dr. Tucker?s office for a post-op appointment about two weeks after surgery. A follow-up should have been scheduled for you already.? If there is not, please call the [facility] at: [phone] to schedule an appointment. My Medications for pain and nausea are: Tylenol/ibuprofen ?and ultram- for severe pain ?and Zofran-nausea When to Call the Office: ? If the incision becomes red or swollen, or there is more than a little drainage from it. ? If you develop a temperature higher than 100.5 F. ? If your eyes turn yellow ? Vomiting and can?t keep fluids down Stand Alone Forms: Anesthesia Discharge InstBrady Huntley (DSU) Activity:: See above Remove Dressings/Wound Care:: 24 hours Shower/Bathe:: 24 hours Diet:: Low-fat Discharge Orders Discharge Orders: Discharge Order (Routine); Ordered 10/26/24 Ordered By: Tayler Tucker DS: Diagnosis Discharge Diagnosis (1) H. pylori duodenitis: Status: Acute (2) Biliary dyskinesia: Status: Acute Asessment and Plan: The patient is doing well post-op from their lap isidro.? They are having no nausea or vomiting. They are tolerating liquids and a snack. The pt is not having any chest pain or SOB.? Their pain is adequately controlled. They have been able to urinate.? ?HEENT:? no eye pain/drainage/redness/swelling. Mild sore throat ?Cardio- NSR, no chest pain, BP stable- see VS record ?Pulm: no sob or productive cough. No hemoptysis ?Incision- dressing is c/d/i w/ no excessive bleeding or drainage ?I discussed with the patient the findings at the time of surgery and the patient?s progress. ?We reviewed expectations at home; what the patient could expect for recovery time, and in the post-operative period.? We discussed the importance of walking to avoid blood clots and pneumonia.? We discussed and reviewed the patient's post-operative wound care and dressing needs.?? We reviewed their step-driscoll pain management plan, Rx called to the pharmacy of their choice.? We reviewed activity and limitations-see discharge instructions. We reviewed warning signs, and when to seek medical attention- see d/c instructions.?? Patient was given a postoperative follow-up appointment. Patient verbalized understanding of their postoperative instructions, how do to take care of themselves and their incision, and the pain management plan. Please see discharge instructions.? (3) Elevated alkaline phosphatase level: Status: Acute
[2024-10-26] VITALS (22 sets, daily range): BP systolic 100–132; BP diastolic 63–86; PULSE 56–74; RESP 15–21; TEMP 36.1–37.1; O2SAT 95–100; BMI 25.0
[2024-10-26] MEDS: Acetaminophen 500 MG TAB 1000 MG PO (06:41)
[2024-10-26] MEDS: Gabapentin 300 MG CAP 600 MG PO (06:42)
--- NOTE | 2024-10-26 06:47 | ANES.PREOP_ITS ---
General Info Date of Service Date Performed: 10/26/24 Height: 5 ft 6 in Weight: 70.5 kg Body Mass Index (BMI): 25.0 Surgical Procedure: Operation Date: 10/26/24 07:40 Proposed Procedure Side Surgeon p Cholecystectomy Laparoscopic Possible Open Tayler Tucker, Meds Allergies and Home Medications Allergies Allergy/AdvReac Type Severity Reaction Status Date / Time Sulfa (Sulfonamide Allergy Intermediate Skin Rash Verified 10/26/24 06:24 Antibiotics) alendronate sodium Allergy Unknown Inflammation Verified 10/26/24 06:24 of esophagus latex Allergy Unknown Skin Rash Verified 10/26/24 06:24 risedronate sodium Allergy Unknown inflammation Verified 10/26/24 06:24 of esophagus Home Medication ?Medication ?Instructions ?Recorded nitroglycerin 0.4 mg sublingual 0.4 mg sublingual Q5M PRN chest 01/22/19 tablet (Nitrostat) pain #30 tabs triamcinolone acetonide 0.1 % 1 applic topical DAILY PRN rash 01/29/21 topical ointment #80 grams bupropion HCl 150 mg tablet,12 hr 150 mg PO DAILY #90 tabs 01/23/24 sustained-release (Wellbutrin SR) estradiol 10 mcg vaginal tablet 10 mcg vaginal .COMPLEX #108 tabs 04/12/24 (Yuvafem) metoprolol succinate 25 mg 25 mg PO DAILY #90 tabs 04/12/24 tablet,extended release 24 hr atorvastatin 10 mg tablet 10 mg PO .three times weekly #36 04/20/24 tabs diclofenac sodium 1 % topical gel 2 g topical QID PRN 04/20/24 (Voltaren Arthritis Pain) losartan 50 mg tablet 50 mg PO DAILY #90 tabs 04/20/24 meloxicam 7.5 mg tablet 7.5 mg PO DAILY PRN Arthritis 04/20/24 calcium 600 mg (as 1 cap PO DAILY 10/18/24 carbonate)-vitamin D3 25 mcg (1,000 unit) capsule turmeric root extract 500 mg 1,000 mg PO .every other day 10/18/24 capsule lorazepam 1 mg tablet 1 mg PO DAILY PRN panic attack(s) 10/25/24 #5 tabs ondansetron 4 mg disintegrating 4 mg PO Q6H PRN #20 tabs 10/25/24 tablet tramadol 50 mg tablet 50 mg PO Q6H PRN PRN Pain #14 tabs 10/25/24 Current Visit Medications: Current Medications Generic Name Dose Route Start Last Admin Trade Name Frelisnadro PRN Reason Stop Dose Admin Acetaminophen 1,000 mg 10/26/24 06:00 10/26/24 06:41 Acetaminophen 500 Mg Tab PO 11/24/24 23:59 1,000 mg PREOP WARREN Administration Gabapentin 600 mg 10/26/24 06:00 10/26/24 06:42 Gabapentin 300 Mg Cap PO 11/24/24 23:59 600 mg PREOP WARREN Administration Ondansetron HCl 4 mg/ Sodium 52 mls @ 200 mls/hr 10/26/24 00:39 Chloride IVPB 11/25/24 00:38 Q6H PRN PRN Cefazolin Sodium/Dextrose 2 gm in 50 mls @ 100 mls/hr 10/26/24 06:00 Ancef Duplex IVPB 11/24/24 23:59 PREOP WARREN Sodium Chloride 500 mls @ 30 mls/hr 10/26/24 06:15 Saline 500ml Bag IV 11/25/24 06:14 INFUSION WARREN IV Miscellaneous Supplies 1 each 10/26/24 06:00 Iv Access IV 11/24/24 23:59 DIRECTED WARREN Indocyanine Green 5 mg 10/26/24 06:00 Indocyanine Green 25 Mg Vial IVP 11/25/24 05:59 DIRECTED WARREN Morphine Sulfate 2 mg 10/26/24 00:39 Morphine 4 Mg/Ml Syr IVP 11/25/24 00:38 Q1H PRN PRN Sodium Chloride 0 ml 10/26/24 06:00 Normal Saline Flush 10 Ml Syr IV 11/24/24 23:59 PRN PRN Sodium Chloride 0 ml 10/26/24 06:00 Normal Saline 10 Ml Vial IJ 11/24/24 23:59 DIRECTED PRN Sterile Water 0 ml 10/26/24 06:00 Water,Injection,Sterile 10 Ml Vial IJ 11/24/24 23:59 DIRECTED PRN Tramadol HCl 50 mg 10/26/24 00:39 Tramadol 50 Mg Tab PO 11/25/24 00:38 Q6H PRN PRN Pain PFSH Active Problems Active Problems: Problem Status Onset Code Biliary dyskinesia Acute K82.8 Encounter for hepatitis C screening test for low risk patient Acute Z11.59 Chronic diarrhea of unknown origin Acute K52.9 Chronic diarrhea Acute K52.9 H. 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 Hypercholesterolemia Acute E78.00 Screen for colon cancer Acute Z12.11 Elevated alkaline phosphatase level Acute R74.8 Arthralgia Acute M25.50 Pain in right finger(s) Acute M79.644 Family history of colon cancer Acute Z80.0 DUB (dysfunctional uterine bleeding) Acute N93.8 COVID-19 Acute U07.1 Hypertension Chronic I10 Vaccine counseling Acute Z71.89 Encounter for administration of vaccine Acute Z23 Neuralgia Acute M79.2 Right hip pain Acute M25.551 Shoulder pain, left Acute M25.512 Annual physical exam Acute Z00.00 Tachycardia Acute R00.0 Vitreous detachment Chronic 08/08/14 H43.819 Osteoporosis Chronic M81.0 Diverticular disease Chronic 08/19/13 K57.90 Depressive disorder Chronic F32.9 Chronic pain of toe Chronic 04/30/18 M79.676, G89.29 Cataract Chronic 04/22/16 H26.9 Atrophic vaginitis Chronic N95.2 Medical History Medical History Retinal detachment Bacterial vaginosis (06/20/15) Carpal tunnel syndrome Chronic left shoulder pain (07/31/17) Female infertility Cellulitis Chest pain, rule out acute myocardial infarction Carpal tunnel syndrome EMG 09/15=neg bilaterally Female infertility Cerumen impaction 06/12/15 Bacterial vaginitis 06/20/15 Finger pain, left 07/29/17 Chronic left shoulder pain 07/31/17 Tachycardia (10/27/17) Shoulder pain (10/09/00) biceptal groove CA++; MRI 11/2206-partial thickness supra tear. Left DJD Hand numbness (04/30/18) Elevated blood pressure reading (09/15/17) Elevated BP without diagnosis of hypertension Annual physical exam (06/12/15) Surgical History Surgical History History of esophagogastroduodenoscopy (~10/2024) Status post carpal tunnel release S/P laparotomy 11/10/87 exploratory S/P carpal tunnel release 11/10/05 bilateral Colonoscopy planned (~09/2023) Dr Barron: Family Hx colon cancer S/P colonoscopy (~09/21/18) History of Mohs surgery for squamous cell carcinoma in situ of skin 05/2018 (FACE) PROCEDURES EXPLORATORY LAPAROTOMY, 1987 [facility] Open Carpal Tunnel release B/L 2006-Pt. denies stated she never had this done Extraction of cataract Tobacco Smoking/Tobacco Use Status: Never Passive smoking exposure: Yes Alcohol Alcohol Intake: current Alcohol intake frequency: holidays/special occasions only Alcohol type: wine Substance Use Substance use: Never Substance use type: does not use Vital Signs and Lab Results Vital Signs Most Recent Vital Signs in EMR: Most Recent Vital Signs Temp Pulse Resp BP Pulse Ox 37.1 C 74 18 132/86 100 10/26/24 06:31 10/26/24 06:31 10/26/24 06:31 10/26/24 06:31 10/26/24 06:31 Lab Results Blood Type / Crossmatch: No Data to Display Complete Blood Count: No Data to Display Complete Metabolic Panel: Sodium 142 mmol/L (136-145) 10/14/24 09:23 Potassium 4.1 mmol/L (3.5-5.1) 10/14/24 09:23 Chloride 106 mmol/L (98-107) 10/14/24 09:23 Carbon Dioxide 28.9 mmol/L (21.0-32.0) 10/14/24 09:23 BUN 15 mg/dL (7-18) 10/14/24 09:23 Creatinine 1.0 mg/dL (0.55-1.02) 10/14/24 09:23 Est GFR (CKD-EPI 2020) 61.36 (mL/min/1.73m2) 10/14/24 09:23 Calcium 9.3 mg/dL (8.5-10.1) 10/14/24 09:23 Albumin 3.9 g/dL (3.4-5.0) 10/14/24 09:23 Glucose 97 mg/dL (74-106) 10/14/24 09:23 Liver Function Panel: Alanine Aminotransferase (ALT/SGPT) 32 U/L (14-59) 10/14/24 09: 23 Aspartate Amino Transf (AST/SGOT) 27 U/L (15-37) 10/14/24 09:23 Coagulation Panel: No Data to Display Cardiac Panel: No Data to Display Arterial Blood Gas: No Data to Display Venous Blood Gas: No Data to Display Pancreas Panel: No Data to Display Thyroid Panel: No Data to Display Infectious Disease: No Data to Display Blood Cultures: No Data to Display Toxicology Panel: No Data to Display Imaging and Studies Imaging and Studies Study information below may be from another EMR and interpreted by another provider. Please see original notes in EMR for more complete details. Stress Test Summary: *[facility]* *[facility]* [address] [place] [address] Stress Electrocardiography Marquis protocol Date of study: 02/11/2019 *PATIENT PRESENTATION* Height: 170.2cm (67in) Blood Pressure: Weight: 72.7kg (160lb) BSA: 1.86m^2 Referring physician: Valentina Lloyd Ordering physician: Valentina Lloyd Impressions: Normal study after maximal exercise. Summary: 1. Stress ECG conclusions: Tang treadmill score: 10. This score predicts a low risk of cardiac events. 2. Stress: The target heart rate was achieved. Indication: R07.9. History: REASON FOR VISIT: EPISODES OF RACING HEART AND NON-RADIATING CHEST ACHES AND TWINGES LASTING SECONDS AT A TIME. PT REPORTS NO FURTHER EPISODES SINCE SHE RESTARTED HER METOPRLOL SUCCINATE ER 25 MG DAILY. Risk factors: Family history of coronary artery disease. Hypertension. Dyslipidemia. ALLERGIES: ALENDRONATE SODIUM. LATEX. RISEDRONATE SODIUM. SULFA. MEDICATIONS: METOPROLOL SUCCINATE ER 25 MG DAILY. GLUCOSAM-CHOND TI-EEHWBY-NU AC 1 DAILY. ESTRADIOL 10 MCG VAGINAL TABLET. CALCIUM CARBONATE-VITAMIN D3 2 TABS DAILY. BUPROPION HCL 150 MG DIRECTED. ASPIRIN 81 MG DAILY. Protocol: Marquis protocol. Baseline ECG: SINUS RHYTHM HR 72 BPM. Stress protocol: + +---+ + !Stage !HR !BP (mmHg) ! + +---+ + !Baseline supine !72 !130/80 (97) ! + +---+ + !Baseline standing !76 !130/76 (94) ! + +---+ + !Stage I; 1.7mph, 10degrees; 3 min !121!150/92 (111)! + +---+ + !Stage II; 2.5mph, 12degrees; 3 min!136!152/90 (111)! + +---+ + !Peak stress !156! ! + +---+ + !Recovery; 1 min !130!160/92 (115)! + +---+ + !Recovery; 3 min !88 !140/80 (100)! + +---+ + !Recovery; 6 min !87 !128/76 (93) ! + +---+ + * Stress results: Maximal heart rate during stress was 156bpm (99% of maximal predicted heart rate). The maximal predicted heart rate was 158bpm. The target heart rate was achieved. The rate-pressure product for the peak heart rate and blood pressure was 17422ct Hg/min. Stress ECG: EXERCISE PORTION OF STRESS TEST ENDED IN 10 MINUTES & 4 SECONDS DUE TO SHORTNESS OF BREATH AND FATIGUE. NORMAL HEART RATE AND BLOOD PRESSURE RESPONSE TO EXERCISE MAX HR = 156 % OF TARGET = 98 OCCASIONAL PVC & PAC APPROXIMATE METS ACHIEVED = 11.93 NO ANGINA NO SIGNIFICANT ST SEGMENT CHANGES ABOVE AVERAGE FUNCTIONAL CAPACITY FOR EXERCISE. Tang treadmill score: 10. This score predicts a low risk of cardiac events. Study data: Isaiah Flores MD supervised and was readily available during the procedure. This study was interpreted by [facility]. Study status: Routine. Consent: The risks, benefits, and alternatives to the procedure were explained to the patient and informed consent was obtained. Procedure: Initial setup. A baseline ECG was recorded. Surface ECG leads and manual cuff blood pressure measurements were monitored. Heart sounds: Normal. Lung sounds: Normal. Treadmill exercise testing was performed using the Marquis protocol. Study completion: The patient tolerated the procedure well and was discharged from the lab. Discharge: The patient left the laboratory in stable condition. Birthdate: Patient birthdate: 1955. Sex: Gender: female. Study date: Study date: 02/11/2019. Study time: 00:01 AM. Signature Documentation: The Stress ECG portion of this study was interpreted by Isaiah Flores MD. Electronically signed by Echocardiogram Summary: Patient Name: JESUS ALBERTO BOSWELL Unit #: [id number] Loc: NAT Ordering Provider: Valentina Lloyd M.D., DC Status: REG CLI Primary Care Provider: Valentina Lloyd M.D., DC Date of Exam: 01/27/19 Sex: F : 1955 Age: 63 Exam(s) a US:US echocardiogram *[facility]* *[facility]* [address] [place] [address] Date of study: 01/27/2019 Transthoracic Echocardiography M-mode, complete 2D, complete spectral Doppler, and color Doppler *STUDY CONCLUSIONS* Summary: 1. Left ventricle: The cavity size was normal. Wall thickness was normal. Systolic function was normal. The estimated ejection fraction was 60-65%. Wall motion was normal; there were no regional wall motion abnormalities. 2. Right ventricle: The cavity size was normal. Wall thickness was normal. Systolic function was normal. *PATIENT PRESENTATION* Height: 170.2cm ((67in) ) S/D Pressure: 125 / 74 Weight: 72.6kg ((159.7lb) ) BSA: 1.86m^2 Test start time: 01:45 PM. Test stop time: 02:40 PM. ORDERING Valentina Lloyd REFERRING Valentina Lloyd PERFORMING Unknown PERFORMING [facility] FIN[employer]CIAL ASSOCIATE Mercy Beard, RT (R)(CT), [facility] *PROCEDURE DATA* Procedure information: The patient was identified by two identifiers. This study was interpreted by [facility]. Pertinent images and digital data are archived for permanent storage and are available for subsequent review. No prior study was available for comparison. Study status: Routine. Transthoracic echocardiography. M-mode, complete 2D, complete spectral Doppler, and color Doppler. A Transthoracic Echocardiogram was performed. Scanning was performed from the parasternal, apical, subcostal, and suprasternal notch acoustic windows. Images were obtained using an [id number] cardiac ultrasound machine. Image quality was adequate. Study completion: The patient tolerated the procedure well. History: PMH: Chest pain. R07.9. *CARDIAC ANATOMY* Left ventricle: The cavity size was normal. Wall thickness was normal. Systolic function was normal. The estimated ejection fraction was 60-65%. Wall motion was normal; there were no regional wall motion abnormalities. Diastolic parameters were normal. Aortic valve: Trileaflet; normal thickness leaflets. Mobility was not restricted. Doppler: Transvalvular velocity was within the normal range. There was no stenosis. There was no significant regurgitation. VTI ratio of LVOT to aortic valve: 0.9. Valve area (VTI): 2.8cm^2. Indexed valve area (VTI): 1.5cm^2/m^2. Peak velocity ratio of LVOT to aortic valve: 0.93. Valve area (Vmax): 2.9cm^2. Indexed valve area (Vmax): 1.6cm^2/m^2. Mean velocity ratio of LVOT to aortic valve: 0.93. Valve area (Vmean): 2.9cm^2. Indexed valve area (Vmean): 1.6cm^2/m^2. Mean gradient (S): 5.5mm Hg. Peak gradient (S): 10.2mm Hg. Aorta: Aortic root: The aortic root was normal in size. Mitral valve: Structurally normal valve. Mobility was not restricted. Doppler: Transvalvular velocity was within the normal range. There was no evidence for stenosis. There was no significant regurgitation. Valve area by pressure half-time: 3.9cm^2. Indexed valve area by pressure half-time: 2.1cm^2/m^2. Peak gradient (D): 2.9mm Hg. Left atrium: The atrium was normal in size. Right ventricle: The cavity size was normal. Wall thickness was normal. Systolic function was normal. Pulmonic valve: Doppler: Transvalvular velocity was within the normal range. There was no evidence for stenosis. There was no significant regurgitation. Peak gradient (S): 2.7mm Hg. Tricuspid valve: Structurally normal valve. Doppler: Transvalvular velocity was within the normal range. There was no evidence for stenosis. There was no significant regurgitation. Pulmonary artery: Systolic pressure could not be accurately estimated. Right atrium: The atrium was normal in size. Pericardium: There was no pericardial effusion. Systemic veins: Inferior vena cava: Well visualized. The vessel was patent and normal in size. The respirophasic diameter changes were in the normal range (greater than or equal to 50%). Baseline ECG: Normal sinus rhythm. Measurements Left ventricle Value Reference LV ID, ED, PLAX 4.1 cm 3.5 - 6.0 LV ID, ES, PLAX 2.5 cm 2.1 - 4.0 LV PW thickness, ED, PLAX 0.7 cm LV end-diastolic volume, 1-p A2C 79 ml LV ejection fraction, 1-p A2C 64 % LV end-diastolic volume, 1-p A4C 63 ml LV ejection fraction, 1-p A4C 69 % LV e', lateral 0.13 m/sec LV E/e', lateral 6 LV e', medial 0.097 m/sec LV E/e', medial 9 LV e', average 0.114 m/sec LV E/e', average 7 Ventricular septum Value Reference IVS thickness, ED, PLAX 0.8 cm LVOT Value Reference LVOT ID, A-P 2.0 cm LVOT area 3.1 cm^2 LVOT peak velocity, S 1.49 m/sec LVOT mean velocity, S 1.04 m/sec LVOT VTI, S 32.4 cm LVOT peak gradient, S 8.8 mm Hg LVOT mean gradient, S 4.8 mm Hg Stroke volume (SV), LVOT DP 101 ml Stroke index (SV/bsa), LVOT DP 54 ml/m^2 Aortic valve Value Reference Aortic valve peak velocity, S 1.6 m/sec Aortic valve mean velocity, S 1.11 m/sec Aortic valve VTI, S 36.0 cm Aortic mean gradient, S 5.5 mm Hg Aortic peak gradient, S 10.2 mm Hg VTI ratio, LVOT/AV 0.9 Aortic valve area, VTI 2.8 cm^2 Velocity ratio, peak, LVOT/AV 0.93 Aortic valve area, peak velocity 2.9 cm^2 Velocity ratio, mean, LVOT/AV 0.93 Aortic valve area, mean velocity 2.9 cm^2 Aortic valve area/bsa, mean velocity 1.6 cm^2/m^2 Aorta Value Reference Aortic root ID, ED 3.0 cm Ascending aorta ID, A-P, S 3.2 cm Left atrium Value Reference LA ID, A-P, ES 2.5 cm LA ID/bsa, A-P 1.3 cm/m^2 <=2.2 LA area, ES, A4C 15.8 cm^2 8.8 - 23.4 LA area, ES, A2C 16 cm^2 LA volume/bsa, ES, 1-p A4C Carotid Artery Summary:: Exam(s) a US:US carotid SYMPTOMS/DIAGNOSIS: VISION CHANGES, H53.9 CAROTID ULTRASOUND: Routine examination. On the right, no hemodynamically significant velocity elevations are seen. No calcific plaque is present. The right vertebral artery is antegrade. No hemodynamically significant velocity elevations are seen on the left. No calcific plaque disease is present. The left vertebral artery is antegrade. IMPRESSION: No evidence of a hemodynamically significant cervical carotid artery stenosis. Ordered By: Valentina Lloyd M.D., DC Anesthesia Assessment and Plan Anesthesia History Personal History: No History of Anesthesia Complications Family History: No Family History of Anesthesia Complications Exercise Tolerance Exercise Tolerance: Metabolic Equivalents>4 Pertinent Negatives Pertinent Negatives: No Symptoms of GERD, No Major Cardiovascular Symptoms or Complaints, No Major Pulmonary Symptoms or Complaints and No History of CVA/TIA Cardiac & Pulmonary Exam Cardiac Exam: Normal S1/S2 Heart Sounds Pulmonary Exam: Clear Bilateral Breath Sounds Implantable Cardiac Device Does patient have a Pacemaker or an ICD?: No Airway Exam Known Difficult Airway: No Mallampati Class: 1 Mouth Opening: Normal (> 3cm) Thyromental Distance: Greater than 3 cm Neck Range of Motion: Full ROM Neck Circumference: Normal Teeth Condition: Normal Dentition ASA Classification ASA Score: ASA 2 Emergency Case?: No NPO Status NPO Status: NPO Clears >2 hours, Solids >8 hours Anesthesia Plan Resuscitation Status: Full Code Anesthesia Technique: General Anesthesia Airway Planned: Endotracheal Tube Monitors Used: Standard Monitors and SedLine Preoperative Comments:: Elective FOB intubation
[2024-10-26] MEDS: Indocyanine green 25 MG VIAL 5 MG IVP (06:52)
[2024-10-26] MEDS: Normal Saline 500 ML 30 ML IV (07:00)
[2024-10-26] MEDS: ceFAZolin 2 GM/50 ML BAG IVPB (07:59)
--- NOTE | 2024-10-26 08:42 | GB_PTH ---
PATIENT: Asha Starr LOC: [facility] U#:[id number] AGE/SX: 69/F ROOM: RE10/26/[address]: Tayler Tucker : 1955 BED: DIS: 10/26/2024 SPEC #: [id number] RECD: 10/26/24 12:33 STATUS: MAMIE REOscar #: [id number] EMMANUEL: 10/26/24 08:[address]: Tayler Tucker DEPT: Surgical Specimen RECD BY: Beti Ruiz ENTERED: 10/26/24 12:33 SP TYPE: GB OTHR DR: Valentina Lloyd MD, DC Tissues: 1 - GALLBLADDER Procedures: GROSS AND MICRO LEVEL 3 Comments: [id number]
[2024-10-26] MEDS: Bupivacaine 0.25% Pres-Free W/EPI 30 ML VIAL (08:49)
--- NOTE | 2024-10-26 10:50 | W.ANESPOSTOP ---
Postoperative Evaluation Date, Time and Location Date Performed: 10/26/24 Time Performed: 10:50 Patient Location: Day Surgery Unit Vital Signs Most Recent Imported Vital Signs: Most Recent Vital Signs Temp Pulse Resp BP Pulse Ox 36.4 C L 57 L 16 118/79 97 10/26/24 10:25 10/26/24 10:25 10/26/24 10:25 10/26/24 10:25 10/26/24 10:25 Pain Score Most Recent Pain Score: Most Recent Pain Score Pain Level 0 10/26/24 10:25 Assessment Mental Status: Awake (Alert & Oriented to Patient Baseline) Airway and Respiratory Function: Patent airway with normal (patient baseline) respiratory exam Cardiovascular Function: Hemodynamically Stable Hydration Status: Adequately Hydrated Nausea & Vomiting: No Nausea or Vomiting Pain: Pt. Denies Any Pain Peripheral Nerve Block: Patient did not receive a nerve block
== END 2024-10-26 11:37 | disposition home or self-care (01) ==
LOC: SUR 06:09
PROVIDERS: PCP Family Medicine; Visit Provider Surgery
PROC: 0FT44ZZ Resection of Gallbladder, Percutaneous Endoscopic Approach (ICD-10-PCS; CPT 47562; principal; 2024-10-26 07:30)
DX: K82.8 Other specified diseases of gallbladder (principal); K29.80 Duodenitis without bleeding; R74.8 Abnormal levels of other serum enzymes; I10 Essential (primary) hypertension
CPT/HCPCS: 47562; 88304; J0690; J1100; J1805; J1885; J2405; J2704

== ENCOUNTER → 2024-11-04 13:17 | Outpatient (BNVA) | payer MEDICARE, SELFPAY | PROVIDERS: PCP Family Medicine; Referring Provider Family Medicine; Visit Provider Surgery | DX: Z48.815 Encounter for surgical aftercare following surgery on the digestive system (principal) ==

== ENCOUNTER 2024-11-05 01:09 | Outpatient (RCR) | payer MEDICARE, SELFPAY ==
[2024-11-05] MEDS: Denosumab 60 MG/ML SYR SC (11:02)
== END 2024-11-09 23:59 | disposition home or self-care (01) ==
LOC: INF 01:09
PROVIDERS: PCP Family Medicine; Visit Provider Family Medicine
DX: M81.0 Age-related osteoporosis without current pathological fracture (principal)
CPT/HCPCS: 96372; J0897

== ENCOUNTER 2025-03-09 12:47 | Outpatient (CLI) | payer MEDICARE, SELFPAY ==
--- NOTE | 2025-03-09 13:20 | DI.RAD_ITS ---
Exam(s) XR SHOULDER LT COMPLETE 2+V EXAM: XR SHOULDER LT COMPLETE 2+V CLINICAL HISTORY: eval pathology M25.512 Pain in lt shoulder. TECHNIQUE: 2D digital imaging was performed. Three views. COMPARISON: No exams were available for comparison FINDINGS: BONES: No acute fracture is present. No bony destructive lesion is seen. Small calcification adjacen t to the greater tuberosity consistent with calcific tendinosis. JOINTS: No dislocation present.No significant spurring at the AC joint or glenoid. SOFT TISSUE: Normal. IMPRESSION: Mild calcific tendinosis. DATA REPOSITORY: RADIATION DOSE DELIVERED:
== END 2025-03-09 13:07 ==
LOC: DI 12:48
PROVIDERS: PCP Family Medicine; Visit Provider Nurse Practitioner Family
DX: M25.512 Pain in left shoulder (principal); M75.32 Calcific tendinitis of left shoulder
CPT/HCPCS: 73030

== ENCOUNTER 2025-04-21 01:52 | Outpatient (CLI) | payer MEDICARE, SELFPAY ==
[2025-04-21 12:46] LABS: Calculated LDL 104 mg/dL (<100); Cholesterol 195 mg/dL (<200); HDL Cholesterol 77 mg/dL (>or=50); Triglyceride 72 mg/dL (<150)
[2025-04-21 19:54] LABS: Hepatitis C Ab w Rflx HCV PCR Negative (Negative)
== END 2025-04-21 01:53 | disposition home or self-care (01) ==
LOC: LOS 01:52
PROVIDERS: PCP Family Medicine; Visit Provider Family Medicine
DX: Z11.59 Encounter for screening for other viral diseases (principal); I10 Essential (primary) hypertension
CPT/HCPCS: 36415; 80061; 86803

== ENCOUNTER 2025-05-09 01:56 | Outpatient (RCR) | payer MEDICARE, SELFPAY ==
[2025-05-09] MEDS: Denosumab 60 MG/ML SYR SC (07:34)
== END 2025-05-09 23:59 | disposition home or self-care (01) ==
LOC: INF 01:56
PROVIDERS: PCP Family Medicine; Visit Provider Family Medicine
DX: M81.0 Age-related osteoporosis without current pathological fracture (principal)
CPT/HCPCS: 96372; J0897

== ENCOUNTER 2025-10-20 09:07 | Outpatient (CLI) | payer MEDICARE, SELFPAY ==
[2025-10-20 16:42] LABS: Hemoglobin A1C 5.4 % (<5.7)
[2025-10-20 16:50] LABS: ALT 27 U/L (10-49); AST 33 U/L (<34); Albumin 4.5 g/dL (3.2-5.0); Alkaline Phosphatase 107 U/L (46-116); Anion Gap 9.4 mmol/L (3-11); BUN 15 mg/dL (9-23); Bilirubin, Total 0.8 mg/dL (0.2-1.2); CO2 26.6 mmol/L (20.0-31.0); Calcium 9.3 mg/dL (8.3-10.6); Chloride 105 mmol/L (98-107); Glucose 119 mg/dL (74-106); Potassium 3.6 mmol/L (3.5-5.1); Sodium 141 mmol/L (136-145); Total Protein 7.2 g/dL (5.7-8.2)
[2025-10-21 19:46] LABS: Hepatitis C Ab w Rflx HCV PCR Negative (Negative)
== END 2025-10-20 09:08 | disposition home or self-care (01) ==
PROVIDERS: PCP Family Medicine; Visit Provider Family Medicine
DX: Z11.59 Encounter for screening for other viral diseases (principal); R73.03 Prediabetes; I10 Essential (primary) hypertension
CPT/HCPCS: 36415; 80053; 86803; 83036

== ENCOUNTER → 2025-10-28 00:10 | Outpatient (CLI) | payer MEDICARE, SELFPAY ==
--- NOTE | 2025-10-28 07:45 | DI.MAMMO_ITS ---
Exam(s) MAMMO SCREENING EXAM: MAMMO SCREENING CLINICAL HISTORY: screening,z12.39 TECHNIQUE: Bilateral full field digital CC and MLO mammographic images were obtained with 3D tomosynthesis and utilizing computer aided detection (CAD). COMPARISON: Comparison is made with prior examinations. FINDINGS: Masses/Architectural Distortion: No suspicious masses or areas of architectural distortion are present. Microcalcifications: No suspicious pleomorphic-type are seen. Skin Thickening/Nipple Retraction: None. IMPRESSION: 1. No significant interval change with no specific features of malignancy noted. 2. Unless there is more urgent need, screening mammography is recommended, as per [employer] guidelines. BI-RADS Category 1 - Negative Breast Density - Category C - The breast are heterogeneously dense, which may obscure small masses. Breast density Category C or D implies that the patient has dense breast tissue. Dense breast tissue can make it harder to find cancer on a mammogram. Dense breast tissue is also associated with an increased risk of breast cancer. This information about the result of the mammogram report was provided to the patient to raise their awareness. Use this report when you speak with the patient about their risks for breast cancer, which includes their family history. At that time, you may recommend additional screening tests (Ultrasound or MRI) as these tests may add significant information. A negative radiographic report should not delay biopsy if a dominant or clinically suspicious mass is present. Up to ten percent of cancers are not identified on mammography. A negative report may reinforce clinical impression. Adenosis and dense breasts may obscure an underlying neoplasm. False positive reports average 6 to 10%. Patient will receive a letter notifying them of these results.
== END ==
LOC: DI 00:10
PROVIDERS: PCP Family Medicine; Visit Provider Family Medicine
DX: Z12.31 Encounter for screening mammogram for malignant neoplasm of breast (principal)
CPT/HCPCS: 77063; 77067

== ENCOUNTER 2025-11-09 02:17 | Outpatient (RCR) | payer MEDICARE, SELFPAY ==
[2025-11-09] MEDS: Denosumab 60 MG/ML SYR SC (07:47)
== END 2025-11-09 23:59 | disposition home or self-care (01) ==
LOC: INF 02:17
PROVIDERS: PCP Family Medicine; Visit Provider Family Medicine
DX: M81.0 Age-related osteoporosis without current pathological fracture (principal)
CPT/HCPCS: 96372; J0897